=== PATIENT | male | born 1950 | race African-American/Black ===

== ENCOUNTER 2016-09-18 11:45 | Inpatient (IN) | payer BC ==
[~2016-09-18] VITALS: Ht 185.4 cm; Wt 81.0 kg
[2016-09-18 11:55] VITALS: Ht 185.4 cm; Wt 81.0 kg
[2016-09-18 12:00] VITALS: TEMP 97.6
[2016-09-18] MEDS ORDERED: LEVOFLOXACIN 750MG/D5W (PMX) 150 ML IVPB STA (12:27)
[2016-09-18] MEDS ORDERED: ALBUTEROL 0.5% (NEB) 2.5 MG/0.5 ML AMP INH STA (12:27)
[2016-09-18] MEDS ORDERED: predniSONE 20 MG TAB PO STA (12:27)
[2016-09-18] MEDS ORDERED: IPRATROPIUM (NEB) 0.5 MG/2.5 ML AMP INH STA (12:27)
[2016-09-18 12:49] LABS: ADD SCAN DIFF NO
[2016-09-18 12:53] LABS: BASOPHIL # 0.1 10^3/ul (0.0-0.1); BASOPHILS % 0.7 % (0.0-2.0); EOSINOPHILS # 0.2 10^3/ul (0.0-0.5); EOSINOPHILS % 2.3 % (0.0-7.0); HEMATOCRIT 44.2 % (42.0-52.0); HEMOGLOBIN 14.4 g/dl (14.0-18.0); LYMPHOCYTES # 1.4 10^3/ul (0.8-2.9); LYMPHOCYTES % 16.4 % (15.0-51.0); MEAN CORPUSCULAR HEMOGLOBIN 30.1 pg (29.0-33.0); MEAN CORPUSCULAR HGB CONC 32.6 g/dl (32.0-37.0); MEAN CORPUSCULAR VOLUME 92.5 fl (82.0-101.0); MEAN PLATELET VOLUME 9.5 fl (7.4-10.4); MONOCYTE # 0.5 10^3/ul (0.3-0.9); MONOCYTES % 6.3 % (0.0-11.0); NEUTROPHIL # 6.3 10^3/ul (1.6-7.5); NEUTROPHILS % 73.9 % (39.0-77.0); PLATELET COUNT 362 10^3/UL (140-415); RED BLOOD COUNT 4.78 10^6/ul (4.70-6.10); RED CELL DISTRIBUTION WIDTH 13.4 % (11.5-14.5); WHITE BLOOD COUNT 8.5 10^3/ul (4.8-10.8)
--- NOTE | 2016-09-18 12:53 | RADRPT ---
PROCEDURE: Chest x-ray CLINICAL INDICATION: Pain. TECHNIQUE: One-view frontal. COMPARISON: None available FINDINGS: The cardiac silhouette is normal. No infiltrates are noted. No hilar abnormalities are identified. No pneumothorax or pleural effusions are visualized. Mild chronic pulmonary interstitial changes are noted. Mild aortic calcification/atherosclerosis is noted. Hyperinflation is identified. IMPRESSION: 1. Mild chronic interstitial changes and mild hyperinflation. 2. No acute infiltrates are noted. RPTAT: HGSG .Hussein Cortes MD, MD Date Time Electronically viewed and signed by .Hussein Cortes MD, on 09/18/2016 12:52 .G/
[2016-09-18 13:05] LABS: INR 0.94; PROTIME 12.6 Sec (12.2-14.2)
[2016-09-18 13:06] LABS: PARTIAL THROMBOPLASTIN TIME 31.2 Sec (25.0-35.0)
[2016-09-18 13:18] LABS: ALBUMIN 4.1 g/dl (3.3-4.9); CHLORIDE 102 mmol/L (97-110); POTASSIUM 4.3 mmol/L (3.5-5.1); SODIUM 141 mmol/L (135-144)
[2016-09-18 13:21] LABS: ALANINE AMINOTRANSFERASE 46 IU/L (13-69); ALBUMIN/GLOBULIN RATIO 1.36; ALKALINE PHOSPHATASE 109 IU/L (42-121); ANION GAP 16 (8-16); ASPARTATE AMINO TRANSFERASE 40 IU/L (15-46); BILIRUBIN,INDIRECT 0.3 mg/dl (0-1.1); BILIRUBIN,TOTAL 0.3 mg/dl (0.2-1.3); BLOOD UREA NITROGEN 18 mg/dl (7-20); CARBON DIOXIDE 27 mmol/L (21-31); CREATININE 0.96 mg/dl (0.61-1.24); GLUCOSE 113 mg/dl (70-220); TOTAL PROTEIN 7.1 g/dl (6.1-8.1)
[2016-09-18 13:22] LABS: CALCIUM 9.7 mg/dl (8.4-10.2)
[2016-09-18 13:25] LABS: TROPONIN-I < 0.012 ng/ml (0.00-0.12)
--- NOTE | 2016-09-18 13:41 | ERA ---
ER Documentation Chief Complaint Date/Time DATE: 09/18/16 TIME: 1225 Chief Complaint Shortness of breath HPI 65-year-old male presents to the emergency department complaining of shortness of breath. Patient states that over the last 3 weeks, he has been having shortness of breath. He has coughing up sputum with no purulence or hemoptysis. Patient reports no fevers or chills. However, despite occasionally using an inhaler, he continues to have shortness of breath and came to the emergency department for evaluation. Patient reports no weight loss or night sweats. He reports no significant chest pain. ROS All systems reviewed and are negative except as per history of present illness. FmHx Noncontributory for chief complaint Physical Exam Physical Exam GENERAL: The patient is well developed and appropriate for usual state of health in no apparent distress HEENT: Pupils equal, round, and reactive to light. EOMI. There is no scleral icterus. NECK: C-spine is soft and supple, there is no meningismus. There is no cervical lymphadenopathy. LUNGS: Wheezing bilaterally with decreased tidal volume and increased work of breathing. HEART: Regular rate and rhythm, no murmurs, clicks, rubs or gallops. ABDOMEN: Soft, non-tender, non-distended. There are bowel sounds in all four quadrants. No rebound or guarding. EXTREMITIES: There is no peripheral cyanosis or edema. No focal swelling or erythema. NEURO: The patient moves all four extremities with 5/5 strength. Cranial nerves II - XII are intact. Normal gait. Alert and oriented SKIN: There is no apparent rash or petechiae. HEME/LYMPHATIC: There is no evidence of excessive bruising or lymphedema. PSYCHIATRIC: The patient does not appear anxious or depressed. Result Diagram: 09/18/16 1230 09/18/16 1230 Results 24 hrs Laboratory Tests Test 09/18/16 12:30 Activated Partial Thromboplast Time 31.2Sec Alanine Aminotransferase (ALT/SGPT) 46IU/L Albumin 4.1g/dl Albumin/Globulin Ratio 1.36 Alkaline Phosphatase 109IU/L Anion Gap 16 Aspartate Amino Transf (AST/SGOT) 40IU/L Basophils # 0.110^3/ul Basophils % 0.7% Blood Urea Nitrogen 18mg/dl Calcium Level 9.7mg/dl Carbon Dioxide Level 27mmol/L Chloride Level 102mmol/L Creatinine 0.96mg/dl Direct Bilirubin 0.00mg/dl Eosinophils # 0.210^3/ul Eosinophils % 2.3% Globulin 3.00g/dl Glucose Level 113mg/dl Hematocrit 44.2% Hemoglobin 14.4g/dl INR International Normalized Ratio 0.94 Indirect Bilirubin 0.3mg/dl Lymphocytes # 1.410^3/ul Lymphocytes % 16.4% Mean Corpuscular Hemoglobin 30.1pg Mean Corpuscular Hemoglobin Concent 32.6g/dl Mean Corpuscular Volume 92.5fl Mean Platelet Volume 9.5fl Monocytes # 0.510^3/ul Monocytes % 6.3% Neutrophils # 6.310^3/ul Neutrophils % 73.9% Nucleated Red Blood Cells # 0.010^3/ul Nucleated Red Blood Cells % 0.0/100WBC Platelet Count 51120^3/UL Potassium Level 4.3mmol/L Prothrombin Time 12.6Sec Prothrombin Time Ratio 1.0 Red Blood Count 4.7810^6/ul Red Cell Distribution Width 13.4% Sodium Level 141mmol/L Total Bilirubin 0.3mg/dl Total Protein 7.1g/dl Troponin I < 0.012ng/ml White Blood Count 8.510^3/ul Current Medications Medications (Trade) Dose Ordered Sig/Ash Route PRN Reason Start Time Stop Time Status Last Admin Dose Admin Albuterol (Proventil 0.5% (Neb)) 5 mg ONCE STAT INH 09/18/16 12:27 09/18/16 12:29 DC 09/18/16 12:50 Ipratropium [place] (Atrovent 0.02% (Neb)) 0.5 mg ONCE STAT INH 09/18/16 12:27 09/18/16 12:29 DC 09/18/16 12:50 Prednisone 60 mg 60 mg ONCE STAT PO 09/18/16 12:27 09/18/16 12:29 DC 09/18/16 13:34 Levofloxacin/ Dextrose (Levaquin 750 Mg/ D5W 150 ml (Pmx)) 150 ml @ 100 mls/hr ONCE STAT IVPB 09/18/16 12:27 09/18/16 13:56 09/18/16 13:33 Procedures/MDM Patient was taken to a room, seen and evaluated. Comfort measures were initiated. Diagnostic tests were ordered and reviewed. 3 LEAD RHYTHM STRIP: Normal sinus rhythm without ectopy EK lead EKG reviewed by myself: Normal Sinus Rhythm Normal [place] and intervals No ST elevation, depression, or T wave inversion Impression: Normal EKG RADIOLOGY: reviewed with the radiologist CONSULTATION: hospitalist was notified for admission REEVALUATION: Patient's wheezing improved somewhat with bronchodilators, but he continued to have wheezing noted. Work of breathing was somewhat improved but still not normal. MEDICAL DECISION MAKING: Patient presents for shortness of breath. Differential diagnosis entertained included asthma, pneumonia, other cardiac and pulmonary concerns. After reviewing the patient's diagnostic tests and clinical presentation, patient appears to have COPD exacerbation with no obvious pneumonia. Patient has not completely resolved after bronchodilators and steroids and will benefit from admission to the hospital for further bronchodilator therapy, antibiotics and further treatment. Departure Diagnosis: Primary Impression: COPD exacerbation Condition: GEOFFREY Tomlinson Sep 18, 2016 13:41
--- NOTE | 2016-09-18 14:04 | CONS ---
Date/Time of Note Date/Time of Note DATE: 09/18/16 TIME: 13:59 Assessment/Plan Assessment/Plan Additional Assessment/Plan Chest x-ray was reviewed from today which is showing emphysematous changes without any acute infiltrates. Assessment recommendations; 1. Patient admitted with COPD exacerbation with acute bronchitis. Add Solu-Medrol 60 mg every 6 hours, DuoNeb every 6 hours scheduled and every 4 hours as needed. Levaquin 500 mg IV daily. PPI for GI prophylaxis. Lovenox for DVT prophylaxis. Start supplemental O2 to maintain O2 saturation around 90- 94%. Consultation Date/Type/Reason Admit Date/Time Date of Consultation: Sep 18, 2016 Type of Consultation: Pulmonary Reason for Consultation Pulmonary consultation obtained for COPD exacerbation. History of present illness; Mr. Alcantar is a 52-year-old F [place] male came into the emergency room with a 3-4 day history of increasing shortness of breath , chest congestion severe wheezing patient has been on prednisone without any significant improvement as well as oral antibiotic on outpatient basis. He did have episode of low-grade fever but denies any chest pain, complains of yellow sputum production with streaks of blood in it off and on. According to the patient he was financial symptoms started 3 days ago and denies any chronic respiratory symptoms whatsoever. She also denies any nausea, vomiting. Any diarrhea. Any abdominal pain. Past medical history; is none. Allergies; are none. Social history; patient is a current smoker. No alcohol or drug abuse. Family history; he is single, has 1 son. No show any illnesses in the family. 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 Review of systems; denies any headache, visual changes. Seizures. Does complain of nasal congestion and postnasal drip. Denies any chest pain, angina. Denies any fever chills body aches myalgias sore throat. Any dysphagia. Any edema, orthopnea,weight loss. Denies any night sweats. Exam/Review of Systems Exam HEENT examination; supple neck, no JVD. No lymphadenopathy. Midline trachea. Pharynx is clear. Patient has bilateral cataracts. He is mostly edentulous has few remaining teeth. Chest examination; diffuse bilateral wheezing. With diminished breath sounds throughout. S1-S2 audible, no murmurs. Regular rhythm. Abdomen examination; soft, no organomegaly. Bowel sounds audible. Nontender abdomen. Extremity examination; no peripheral edema. Pulses 2+ bilaterally. No clubbing. 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 Results Result Diagram: 09/18/16 1230 09/18/16 1230 Results 24 hrs Laboratory Tests Test 09/18/16 12:30 Activated Partial Thromboplast Time 31.2 Alanine Aminotransferase (ALT/SGPT) 46 Albumin 4.1 Albumin/Globulin Ratio 1.36 Alkaline Phosphatase 109 Anion Gap 16 Aspartate Amino Transf (AST/SGOT) 40 Basophils # 0.1 Basophils % 0.7 Blood Urea Nitrogen 18 Calcium Level 9.7 Carbon Dioxide Level 27 Chloride Level 102 Creatinine 0.96 Direct Bilirubin 0.00 Eosinophils # 0.2 Eosinophils % 2.3 Globulin 3.00 Glucose Level 113 Hematocrit 44.2 Hemoglobin 14.4 INR International Normalized Ratio 0.94 Indirect Bilirubin 0.3 Lymphocytes # 1.4 Lymphocytes % 16.4 Mean Corpuscular Hemoglobin 30.1 Mean Corpuscular Hemoglobin Concent 32.6 Mean Corpuscular Volume 92.5 Mean Platelet Volume 9.5 Monocytes # 0.5 Monocytes % 6.3 Neutrophils # 6.3 Neutrophils % 73.9 Nucleated Red Blood Cells # 0.0 Nucleated Red Blood Cells % 0.0 Platelet Count 362 Potassium Level 4.3 Prothrombin Time 12.6 Prothrombin Time Ratio 1.0 Red Blood Count 4.78 Red Cell Distribution Width 13.4 Sodium Level 141 Total Bilirubin 0.3 Total Protein 7.1 Troponin I < 0.012 White Blood Count 8.5 KAREN GAITAN Sep 18, 2016 14:03
[2016-09-18] MEDS ORDERED: NACL 0.9% 3 ML SYG IV SCH (15:00)
[2016-09-18] MEDS ORDERED: ACETAMINOPHEN 325 MG TAB PO PRN (15:00)
[2016-09-18] MEDS ORDERED: ONDANSETRON 4 MG INJ IV PRN (15:00)
[2016-09-18] MEDS ORDERED: ALBUTEROL/IPRATROPIUM (NEB) 3 ML AMP HHN PRN (15:00)
[2016-09-18] MEDS ORDERED: DOCUSATE SODIUM 100 MG CAP PO PRN (15:00)
[2016-09-18 15:19] VITALS: BP 123/88; RESP 24
--- NOTE | 2016-09-18 15:54 | HP ---
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 CHIEF COMPLAINT: Shortness of breath. HISTORY OF PRESENT ILLNESS: This is a pleasant 65-year-old gentleman with past medical history of n icotine dependency who presents to [facility] secondary to having flu-like symptom s x3 weeks accompanied with cough, fever off and on, increased wheezing, nasal congestion, shortness of breath upon ambulation and paroxysmal nocturnal dyspnea for the past 3 weeks secondary to excess félix cough. Patient has been treating himself with [id number] medication such as Thera-Flu and Tylenol without any resolution. Today, the patient was at work had severe shortness of breath and wheezing; therefore, he presented to [facility] Emergency Room where he was found to be tac hycardic with ventricular rate 101, respiration rate of 34, blood pressure 189/107, oxygen saturatio n 96% on 3 liters via nasal cannula. The patient was started on DuoNeb, prednisone and Levaquin. T he patient continues to have wheezing at this time. PAST MEDICAL AND SURGICAL HISTORY: 1. Smoking 7 to 8 cigarettes per day. 2. Bilateral foot surgery. FAMILY HISTORY: No family history of cardiac disease, COPD, cancer. SOCIAL HISTORY: Positive for smoke. History of nicotine dependency. No alcohol, no illicit drugs. REVIEW OF SYSTEMS: As above per HPI, otherwise 12-point review of systems has been found to be nega tive. PHYSICAL EXAMINATION: VITAL SIGNS: Temperature 97.6, pulse 92, respiration 19, blood pressure 131/88, oxygen saturation 9 7% on 3 liters via nasal cannula. GENERAL APPEARANCE: The patient is sitting on the bed comfortably without any distress. He is awak e, alert, oriented. He is able to answer my questions properly. He is not using any accessory musc le for breathing. EYES, EARS, NOSE, THROAT: Conjunctivae and lids are normal. Pupils are normal. Extraocular normal . Hearing grossly normal. Lips are normal. Oral mucosa is moist. NECK: Supple. Trachea is midline. No lymphadenopathy. RESPIRATORY: Effort is normal. Bilateral upper lung wheezing. No crackles, no rales. CARDIOVASCULAR: Normal S1, S2. Regular rhythm and rate. No murmur, no bruits, no edema. Peripher al pulses, radial pulses palpable. Cap refill is normal. CHEST: Normal expansion of thorax during inspiration. He does not use any accessory muscles for br eathing. GASTROINTESTINAL: Abdomen is soft, nontender, not distended. Bowel sounds present. No guarding, n o rebound. GENITOURINARY: Deferred. MUSCULOSKELETAL: Upper and lower extremities within normal limits. Full range of motion, strength 5/5 in both upper and lower extremities. NEUROLOGIC: Cranial nerves II through XII are grossly intact. PSYCHIATRIC: Normal judgment and insight. Alert and oriented x3. Mood and affect is normal. LABORATORY WORK AND IMAGING: WBC 8.5, hemoglobin 14.4, hematocrit 44.2, platelets 362. Sodium 141, potassium 4.3, chloride 102, bicarbonate 27, BUN 18, creatinine 0.96, glucose 113. Lactic acid 1.5 . LFTs all within normal limits. Chest x-ray showed mild chronic interstitial changes with mild hyperinflation, no acute infiltrate i s noted. ASSESSMENT AND PLAN: 1. Asthma exacerbation is likely secondary to viral syndrome. Patient has been started on Levaquin and breathing treatment, Solu-Medrol. Pulmonology has been consulted. We will follow up patient's breathing and oxygen saturation. 2. History of nicotine dependency. Education was provided and smoking cessation has been advised. Place the patient on nicotine patch. 3. For deep venous thrombosis prophylaxis, on Lovenox. 4. For gastrointestinal prophylaxis, not indicated. We will continue to monitor patient closely. Further recommendations, management and treatment as per clinical course. Total amount of time was spent for evaluation of patient and workup was 40 minutes. Dictated By: JG MUNOZ/AUREA Conf#: [id number] DID#: [id number]
[2016-09-18 19:35] VITALS: BP 120/73; RESP 22
[2016-09-18] MEDS: ALBUTEROL/IPRATROPIUM (NEB) 3 ML AMP HHN SCH (19:48)
[2016-09-18] MEDS: METHYLPREDNISOLONE 125 MG INJ IV SCH (21:20)
[2016-09-19] MEDS: ALBUTEROL/IPRATROPIUM (NEB) 3 ML AMP HHN SCH ×5 (02:48→20:50)
[2016-09-19] MEDS: METHYLPREDNISOLONE 125 MG INJ IV SCH ×3 (05:49→21:15)
[2016-09-19] MEDS: GUAIFENESIN/CODEINE 5ML CUP PO PRN ×2 (05:53→21:15)
[2016-09-19] MEDS: HYDROCODONE/APAP (5/325) TAB PO PRN ×2 (05:53→19:04)
[2016-09-19 06:19] LABS: ALBUMIN 3.9 g/dl (3.3-4.9); POTASSIUM 4.4 mmol/L (3.5-5.1)
[2016-09-19 06:21] LABS: BILIRUBIN,INDIRECT 0.1 mg/dl (0-1.1); BILIRUBIN,TOTAL 0.1 mg/dl (0.2-1.3); CREATININE 0.8 mg/dl (0.61-1.24)
[2016-09-19 06:22] LABS: ALBUMIN/GLOBULIN RATIO 1.21; CALCIUM 9.6 mg/dl (8.4-10.2); TOTAL PROTEIN 7.1 g/dl (6.1-8.1)
[2016-09-19 07:14] VITALS: BP 128/83; RESP 24
[2016-09-19] MEDS: NICOTINE (7 MG/24 HR) PATCH TRANSDERM SCH (10:02)
[2016-09-19] MEDS: ENOXAPARIN 40 MG/0.4 ML SYG SC SCH (10:13)
[2016-09-19] MEDS: LEVOFLOXACIN 500MG/D5W (PMX) 100 ML IVPB SCH (13:59)
[2016-09-19] MEDS: DOCUSATE SODIUM 100 MG CAP PO SCH ×2 (14:12→20:37)
--- NOTE | 2016-09-19 16:23 | PN ---
DATE: 09/19/2016 SUBJECTIVE: The patient, Ortiz, remains stable this morning, still has some shortness of breath on exertion and auditory wheezing. PHYSICAL EXAMINATION:. VITAL SIGNS: Temperature 98, pulse 95, blood pressure 128/83, O2 saturation 96% on 2 L nasal cannul a. NECK: Supple. No JVD or lymphadenopathy. CARDIAC: S1, S2, no added sounds or murmurs. CHEST: Diminished air entry bilaterally. ABDOMEN: Soft, nontender. No guarding or rebound. EXTREMITIES: No cyanosis, clubbing, edema. NEUROLOGIC: Grossly intact. No focal deficits. LABORATORY DATA: Pending at time of this dictation. IMPRESSION AND PLAN: 1. Hypoxemic respiratory failure. 2. Chronic obstructive pulmonary disease with exacerbation. 3. History of ongoing tobacco use. Patient will require: 1. Continue steroids. 2. Bronchodilators. 3. Intravenous antibiotics. 4. DVT and GI prophylaxis. 5. Advice on smoking cessation. Dictated By: MELONIE COATES/AUREA Conf#: [id number] DID#: [id number]
--- NOTE | 2016-09-19 17:10 | PN ---
Date/Time of Note Date/Time of Note DATE: 09/19/16 TIME: 17:08 Assessment/Plan VTE Prophylaxis VTE Prophylaxis Intervention: LMWH Lines/Catheters [facility] Saline Lock Urinary Cath still in place: No Assessment/Plan Assessment/Plan 1. COPD exacerbation is likely secondary to viral syndrome. Patient has been started on Levaquin and breathing treatment, Solu-Medrol. increase bronchodilator therapy to q4h 2. Nicotine dependency. Education was provided and smoking cessation has been advised. Patient on nicotine patch. 3. For deep venous thrombosis prophylaxis, on Lovenox. 4. For gastrointestinal prophylaxis, not indicated. We will continue to monitor patient closely. Further recommendations, management and treatment as per clinical course. Subjective 24 Hr Interval Summary Free Text/Dictation c/o coughing , still quite SOB Exam/Review of Systems Vital Signs Vitals Vital Signs Date Time Temp Pulse Resp B/P Pulse Ox O2 Delivery O2 Flow Rate FiO2 09/19/16 16:02 81 22 94 Nasal Cannula 2.0 09/19/16 07:14 98.0 128/83 Intake and Output 09/18/16 09/18/16 09/19/16 15:00 23:00 07:00 Intake Total 240 ml 450 ml Output Total 350 ml Balance -110 ml 450 ml Exam Constitutional: alert, oriented Psych: anxiety Eyes: PERRL, No icteric ENMT: mucosa pink and moist Respiratory: diminished breath sounds, wheezing Cardiovascular: nl pulses, No murmurs/extra sounds Gastrointestinal: bowel sounds, non-tender, soft Neurological: nl mental status, nl speech, nl strength Results Result Diagram: 09/18/16 1230 09/19/16 0505 Results 24 hrs Laboratory Tests Test 09/19/16 05:05 Alanine Aminotransferase (ALT/SGPT) 40 Albumin 3.9 Albumin/Globulin Ratio 1.21 Alkaline Phosphatase 99 Anion Gap 15 Aspartate Amino Transf (AST/SGOT) 32 Blood Urea Nitrogen 12 Calcium Level 9.6 Carbon Dioxide Level 26 Chloride Level 105 Creatinine 0.80 Direct Bilirubin 0.00 Globulin 3.20 Glucose Level 156 Indirect Bilirubin 0.1 Magnesium Level 2.0 Potassium Level 4.4 Sodium Level 142 Total Bilirubin 0.1 L Total Protein 7.1 Medications Medications Current Medications Methylprednisolone Sodium Succinate 60 mg 60 mg Q8 IV Last administered on t 14:02; Admin Dose 60 MG; Start 09/18/16 at 22:00 Levofloxacin/ Dextrose (Levaquin 500mg/ D5W 100 ml (Pmx)) 100 ml @ 100 mls/hr Q24H IVPB Last administered on 09/19/16 13:59; Admin Dose 100 MLS/HR; Start 09/19/16 at 13:00 Guaifenesin/ Codeine Phosphate (Robitussin Ac Liquid Cup) 5 ml Q4H PRN PO COUGH Last administered on 09/19/16 05:53; Admin Dose 5 ML; Start 09/18/16 at 15: 00 Ondansetron HCl (Zofran Inj) 4 mg Q6H PRN IV NAUSEA AND/OR VOMITING; Start 09/18 at 15:00 Acetaminophen (Tylenol Tab) 650 mg Q6H PRN PO PAIN LEVEL 1-3 OR FEVER; Start at 15:00 Acetaminophen/ Hydrocodone Bitart ([place] (5/325)) 1 tab Q6H PRN PO MODERATE PAIN LEVEL 4-6 Last administered on 09/19/16 05:53; Admin Dose 1 TAB; Start 09/18 at 15:00 Enoxaparin Sodium (Lovenox) 40 mg DAILY SC Last administered on 09/19/16 10:13 ; Admin Dose 40 MG; Start 09/19/16 at 09:00 Nicotine (Nicoderm 7 Mg/ 24 Hr) 1 patch DAILY TRANSDERM Last administered on 10:02; Admin Dose 1 PATCH; Start 09/19/16 at 09:00 Docusate Sodium (Colace) 100 mg Q12 PO Last administered on 09/19/16 14:12; Admin Dose 100 MG; Start 09/19/16 at 15:00 DORINDA VIRGEN Sep 19, 2016 17:09
[2016-09-19 19:00] VITALS: BP 147/79; RESP 20
[2016-09-19] MEDS: FAMOTIDINE 20 MG TAB PO SCH (20:37)
[2016-09-20] MEDS: ALBUTEROL/IPRATROPIUM (NEB) 3 ML AMP HHN SCH ×6 (00:22→20:27)
[2016-09-20] MEDS: GUAIFENESIN/CODEINE 5ML CUP PO PRN ×3 (01:16→13:07)
[2016-09-20] MEDS: METHYLPREDNISOLONE 125 MG INJ IV SCH ×3 (05:34→21:39)
[2016-09-20] MEDS: HYDROCODONE/APAP (5/325) TAB PO PRN ×2 (05:38→13:07)
[2016-09-20] MEDS: FAMOTIDINE 20 MG TAB PO SCH ×2 (07:53→21:39)
[2016-09-20] MEDS: DOCUSATE SODIUM 100 MG CAP PO SCH ×2 (07:53→21:39)
[2016-09-20] MEDS: NICOTINE (7 MG/24 HR) PATCH TRANSDERM SCH (07:54)
[2016-09-20 08:25] VITALS: BP 132/80; RESP 20
[2016-09-20] MEDS: ENOXAPARIN 40 MG/0.4 ML SYG SC SCH (08:42)
--- NOTE | 2016-09-20 10:57 | PN ---
Date/Time of Note Date/Time of Note DATE: 09/20/16 TIME: 10:56 Assessment/Plan VTE Prophylaxis VTE Prophylaxis Intervention: LMWH Lines/Catheters [facility] Saline Lock Urinary Cath still in place: No Assessment/Plan Assessment/Plan 1. COPD exacerbation is likely secondary to viral syndrome (acute bronchitis): improving slowly 2. Nicotine dependency. Education was provided and smoking cessation has been advised. Patient on nicotine patch. 3. For deep venous thrombosis prophylaxis, on Lovenox. 4. For gastrointestinal prophylaxis, not indicated. PLAN: continue bronchodilator and steroid therapy We will continue to monitor patient closely. Further recommendations, management and treatment as per clinical course. Subjective 24 Hr Interval Summary Free Text/Dictation Patient seen and examined. Constitutional: improved, no complaints Respiratory: cough, wheezing Gastrointestinal: constipation Exam/Review of Systems Vital Signs Vitals Vital Signs Date Time Temp Pulse Resp B/P Pulse Ox O2 Delivery O2 Flow Rate FiO2 09/20/16 08:30 4.0 09/20/16 08:30 20 95 Nasal Cannula 09/20/16 08:25 98.1 94 132/80 Intake and Output 09/19/16 09/19/16 09/20/16 15:00 23:00 07:00 Intake Total 100 ml 1080 ml 960 ml Balance 100 ml 1080 ml 960 ml Exam Constitutional: alert, oriented Psych: anxiety Eyes: PERRL, No icteric ENMT: mucosa pink and moist Respiratory: diminished breath sounds, wheezing Cardiovascular: nl pulses, No murmurs/extra sounds Gastrointestinal: bowel sounds, non-tender, soft Neurological: nl mental status, nl speech, nl strength Results Result Diagram: 09/18/16 1230 09/19/16 0505 Medications Medications Current Medications Methylprednisolone Sodium Succinate 60 mg 60 mg Q8 IV Last administered on 05:34; Admin Dose 60 MG; Start 09/18/16 at 22:00 Levofloxacin/ Dextrose (Levaquin 500mg/ D5W 100 ml (Pmx)) 100 ml @ 100 mls/hr Q24H IVPB Last administered on 09/19/16 13:59; Admin Dose 100 MLS/HR; Start 09/19/16 at 13:00 Guaifenesin/ Codeine Phosphate (Robitussin Ac Liquid Cup) 5 ml Q4H PRN PO COUGH Last administered on 09/20/16 05:38; Admin Dose 5 ML; Start 09/18/16 at 15: 00 Ondansetron HCl (Zofran Inj) 4 mg Q6H PRN IV NAUSEA AND/OR VOMITING; Start 09/18 at 15:00 Acetaminophen (Tylenol Tab) 650 mg Q6H PRN PO PAIN LEVEL 1-3 OR FEVER; Start at 15:00 Acetaminophen/ Hydrocodone Bitart ([place] (5/325)) 1 tab Q6H PRN PO MODERATE PAIN LEVEL 4-6 Last administered on 09/20/16 05:38; Admin Dose 1 TAB; Start 09/18 at 15:00 Enoxaparin Sodium (Lovenox) 40 mg DAILY SC Last administered on 09/20/16 08:42 ; Admin Dose 40 MG; Start 09/19/16 at 09:00 Nicotine (Nicoderm 7 Mg/ 24 Hr) 1 patch DAILY TRANSDERM Last administered on 07:54; Admin Dose 1 PATCH; Start 09/19/16 at 09:00 Docusate Sodium (Colace) 100 mg Q12 PO Last administered on 09/20/16 07:53; Admin Dose 100 MG; Start 09/19/16 at 15:00 Famotidine (Pepcid) 20 mg BID PO Last administered on 09/20/16 07:53; Admin Dose 20 MG; Start 09/19/16 at 21:00 DORINDA VIRGEN Sep 20, 2016 10:57
--- NOTE | 2016-09-20 12:07 | CONS ---
Date/Time of Note Date/Time of Note DATE: 09/20/16 TIME: 12:05 Assessment/Plan Assessment/Plan Additional Assessment/Plan Assessment and recommendations; 1. Patient admitted with COPD exacerbation and acute bronchitis with slow clinical improvement. Continue current treatment. Consultation Date/Type/Reason Admit Date/Time Sep 19, 2016 at 12:18 Initial Consult Date 09/18/16 Type of Consultation: Pulmonary 24 HR Interval Summary Free Text/Dictation Patient's condition is gradually improving. Still complains of chest congestion , sputum production as well as wheezing. Because of breath is improving. But the patient still complains of dyspnea on exertion. Denies any fever, chest pain, chills. Next General exam; elderly male, currently in no distress. Exam/Review of Systems Vital Signs Vitals Vital Signs Date Time Temp Pulse Resp B/P Pulse Ox O2 Delivery O2 Flow Rate FiO2 09/20/16 08:30 4.0 09/20/16 08:30 20 95 Nasal Cannula 09/20/16 08:25 98.1 94 132/80 Intake and Output 09/19/16 09/19/16 09/20/16 15:00 23:00 07:00 Intake Total 100 ml 1080 ml 960 ml Balance 100 ml 1080 ml 960 ml Exam HEENT examination; supple neck, no JVD. No lymphadenopathy. Midline trachea. No thyromegaly. Patient is mostly edentulous. Pharynx is clear. Pupils are midsize and reactive to light. Next Chest examination; diminished breath sounds bilateral wheezing. S1-S2 audible, no murmurs. Regular rhythm. Abdomen examination; soft, nondistended. No organomegaly. Nontender. Bowel sounds audible. Extremity examination; no peripheral edema. No clubbing. Pulses 1+ bilaterally. 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 Results Result Diagram: 09/18/16 1230 09/19/16 0505 Medications Medications Current Medications Methylprednisolone Sodium Succinate 60 mg 60 mg Q8 IV Last administered on 05:34; Admin Dose 60 MG; Start 09/18/16 at 22:00 Levofloxacin/ Dextrose (Levaquin 500mg/ D5W 100 ml (Pmx)) 100 ml @ 100 mls/hr Q24H IVPB Last administered on 09/19/16 13:59; Admin Dose 100 MLS/HR; Start 09/19/16 at 13:00 Guaifenesin/ Codeine Phosphate (Robitussin Ac Liquid Cup) 5 ml Q4H PRN PO COUGH Last administered on 09/20/16 05:38; Admin Dose 5 ML; Start 09/18/16 at 15: 00 Ondansetron HCl (Zofran Inj) 4 mg Q6H PRN IV NAUSEA AND/OR VOMITING; Start 09/18 at 15:00 Acetaminophen (Tylenol Tab) 650 mg Q6H PRN PO PAIN LEVEL 1-3 OR FEVER; Start at 15:00 Acetaminophen/ Hydrocodone Bitart ([place] (5/325)) 1 tab Q6H PRN PO MODERATE PAIN LEVEL 4-6 Last administered on 09/20/16 05:38; Admin Dose 1 TAB; Start 09/18 at 15:00 Enoxaparin Sodium (Lovenox) 40 mg DAILY SC Last administered on 09/20/16 08:42 ; Admin Dose 40 MG; Start 09/19/16 at 09:00 Nicotine (Nicoderm 7 Mg/ 24 Hr) 1 patch DAILY TRANSDERM Last administered on 07:54; Admin Dose 1 PATCH; Start 09/19/16 at 09:00 Docusate Sodium (Colace) 100 mg Q12 PO Last administered on 09/20/16 07:53; Admin Dose 100 MG; Start 09/19/16 at 15:00 Famotidine (Pepcid) 20 mg BID PO Last administered on 09/20/16 07:53; Admin Dose 20 MG; Start 09/19/16 at 21:00 KAREN GAITAN Sep 20, 2016 12:07
[2016-09-20] MEDS: LEVOFLOXACIN 500MG/D5W (PMX) 100 ML IVPB SCH (13:03)
[2016-09-20 19:00] VITALS: BP 150/84; RESP 24
[2016-09-20] MEDS ORDERED: MAGNESIUM CITRATE 300 ML BTL PO ONE (20:00)
[2016-09-21] MEDS: ALBUTEROL/IPRATROPIUM (NEB) 3 ML AMP HHN SCH ×5 (00:40→20:58)
[2016-09-21] MEDS: GUAIFENESIN/CODEINE 5ML CUP PO PRN (03:50)
[2016-09-21] MEDS: METHYLPREDNISOLONE 125 MG INJ IV SCH ×3 (06:07→21:27)
[2016-09-21 07:30] VITALS: BP 141/87; RESP 22
[2016-09-21] MEDS: FAMOTIDINE 20 MG TAB PO SCH ×2 (09:04→21:27)
[2016-09-21] MEDS: DOCUSATE SODIUM 100 MG CAP PO SCH ×2 (09:04→21:27)
[2016-09-21] MEDS: NICOTINE (7 MG/24 HR) PATCH TRANSDERM SCH (09:05)
[2016-09-21] MEDS: ENOXAPARIN 40 MG/0.4 ML SYG SC SCH (09:26)
--- NOTE | 2016-09-21 10:44 | PN ---
Date/Time of Note Date/Time of Note DATE: 09/21/16 TIME: 10:43 Assessment/Plan VTE Prophylaxis VTE Prophylaxis Intervention: LMWH Lines/Catheters IV Catheter Type (from [facility]): Saline Lock Urinary Cath still in place: No Assessment/Plan Assessment/Plan 1. COPD exacerbation is likely secondary to viral syndrome (acute bronchitis): improving slowly 2. Nicotine dependency. Education was provided and smoking cessation has been advised. Patient on nicotine patch. 3. For deep venous thrombosis prophylaxis, on Lovenox. 4. For gastrointestinal prophylaxis, not indicated. PLAN: continue bronchodilator and steroid therapy We will continue to monitor patient closely. Further recommendations, management and treatment as per clinical course. Subjective 24 Hr Interval Summary Constitutional: improved Exam/Review of Systems Vital Signs Vitals Vital Signs Date Time Temp Pulse Resp B/P Pulse Ox O2 Delivery O2 Flow Rate FiO2 09/21/16 08:55 90 22 94 Nasal Cannula 3.0 09/21/16 07:30 97.7 141/87 Intake and Output 09/20/16 09/20/16 09/21/16 14:59 22:59 06:59 Intake Total 760 ml 720 ml Balance 760 ml 720 ml Exam Constitutional: alert, oriented Psych: anxiety Eyes: PERRL, No icteric ENMT: mucosa pink and moist Respiratory: diminished breath sounds, wheezing Cardiovascular: nl pulses, No murmurs/extra sounds Gastrointestinal: bowel sounds, non-tender, soft Neurological: nl mental status, nl speech, nl strength Results Result Diagram: 09/18/16 1230 09/19/16 0505 Medications Medications Current Medications Methylprednisolone Sodium Succinate 60 mg 60 mg Q8 IV Last administered on 06:07; Admin Dose 60 MG; Start 09/18/16 at 22:00 Levofloxacin/ Dextrose (Levaquin 500mg/ D5W 100 ml (Pmx)) 100 ml @ 100 mls/hr Q24H IVPB Last administered on 09/20/16 13:03; Admin Dose 100 MLS/HR; Start 09/19/16 at 13:00 Guaifenesin/ Codeine Phosphate (Robitussin Ac Liquid Cup) 5 ml Q4H PRN PO COUGH Last administered on 09/21/16 03:50; Admin Dose 5 ML; Start 09/18/16 at 15: 00 Ondansetron HCl (Zofran Inj) 4 mg Q6H PRN IV NAUSEA AND/OR VOMITING; Start 09/18 at 15:00 Acetaminophen (Tylenol Tab) 650 mg Q6H PRN PO PAIN LEVEL 1-3 OR FEVER; Start at 15:00 Acetaminophen/ Hydrocodone Bitart ([place] (5/325)) 1 tab Q6H PRN PO MODERATE PAIN LEVEL 4-6 Last administered on 09/20/16 13:07; Admin Dose 1 TAB; Start 09/18 at 15:00 Enoxaparin Sodium (Lovenox) 40 mg DAILY SC Last administered on 09/21/16 09:26 ; Admin Dose 40 MG; Start 09/19/16 at 09:00 Nicotine (Nicoderm 7 Mg/ 24 Hr) 1 patch DAILY TRANSDERM Last administered on 09:05; Admin Dose 1 PATCH; Start 09/19/16 at 09:00 Docusate Sodium (Colace) 100 mg Q12 PO Last administered on 09/21/16 09:04; Admin Dose 100 MG; Start 09/19/16 at 15:00 Famotidine (Pepcid) 20 mg BID PO Last administered on 09/21/16 09:04; Admin Dose 20 MG; Start 09/19/16 at 21:00 DORINDA VIRGEN Sep 21, 2016 10:44
--- NOTE | 2016-09-21 11:19 | PN ---
DATE: 09/21/2016 SUBJECTIVE: The patient Ortiz remains clinically stable, still has some shortness of breath on ex ertion and audible expiratory wheeze. VITAL SIGNS: Temperature 98, pulse is 90, blood pressure 141/80, O2 saturation 96% on 3 L nasal can nula. NECK: Supple. No JVD or lymphadenopathy. CARDIAC: S1, S2, no added sounds or murmurs. HEENT: Diminished air entry bilaterally. CHEST: Diminished air entry bilaterally with expiratory wheezes in left lung. ABDOMEN: Soft, nontender. No guarding or rebound. EXTREMITIES: No cyanosis, clubbing, or edema. NEUROLOGIC: Generalized weakness. IMPRESSION AND PLAN: 1. Chronic obstructive pulmonary disease exacerbation. 2. Hypoxemic respiratory failure. 3. History of tobacco use. 4. Poor dentition. The patient will require: 1. Continue steroids. 2. Bronchodilators. 3. Supplemental O2. 4. Continue Levaquin. 5. DVT and GI prophylaxis. Anticipate discharge in 1 to 2 days. Dictated By: MELONIE COATES/AUREA Conf#: [id number] DID#: [id number]
[2016-09-21] MEDS: LEVOFLOXACIN 500MG/D5W (PMX) 100 ML IVPB SCH (13:00)
[2016-09-21 20:08] VITALS: BP 139/84; RESP 20
[2016-09-22] MEDS: ALBUTEROL/IPRATROPIUM (NEB) 3 ML AMP HHN SCH ×6 (01:22→20:35)
[2016-09-22 05:40] LABS: ADD SCAN DIFF NO
[2016-09-22 05:51] LABS: BASOPHILS % 0.1 % (0.0-2.0); EOSINOPHILS % 0.1 % (0.0-7.0); HEMOGLOBIN 14.3 g/dl (14.0-18.0); LYMPHOCYTES # 1.6 10^3/ul (0.8-2.9); LYMPHOCYTES % 11.1 % (15.0-51.0); MEAN CORPUSCULAR HEMOGLOBIN 30.5 pg (29.0-33.0); MEAN CORPUSCULAR HGB CONC 32.5 g/dl (32.0-37.0); MEAN CORPUSCULAR VOLUME 93.8 fl (82.0-101.0); MEAN PLATELET VOLUME 9.5 fl (7.4-10.4); MONOCYTE # 0.8 10^3/ul (0.3-0.9); MONOCYTES % 5.5 % (0.0-11.0); NEUTROPHIL # 11.6 10^3/ul (1.6-7.5); NEUTROPHILS % 82.1 % (39.0-77.0); PLATELET COUNT 377 10^3/UL (140-415); RED BLOOD COUNT 4.69 10^6/ul (4.70-6.10); WHITE BLOOD COUNT 14.1 10^3/ul (4.8-10.8)
[2016-09-22] MEDS: METHYLPREDNISOLONE 125 MG INJ IV SCH ×3 (06:01→22:27)
[2016-09-22] MEDS: GUAIFENESIN/CODEINE 5ML CUP PO PRN ×2 (06:04→20:58)
[2016-09-22 06:20] LABS: POTASSIUM 4.7 mmol/L (3.5-5.1)
[2016-09-22 06:23] LABS: CREATININE 0.8 mg/dl (0.61-1.24)
[2016-09-22 06:24] LABS: CALCIUM 9.2 mg/dl (8.4-10.2); MAGNESIUM 2.3 mg/dl (1.7-2.5)
[2016-09-22 07:24] VITALS: BP 141/91; RESP 22
[2016-09-22] MEDS: DOCUSATE SODIUM 100 MG CAP PO SCH ×2 (08:26→20:58)
[2016-09-22] MEDS: HYDROCODONE/APAP (5/325) TAB PO PRN (08:26)
[2016-09-22] MEDS: NICOTINE (7 MG/24 HR) PATCH TRANSDERM SCH (08:26)
[2016-09-22] MEDS: FAMOTIDINE 20 MG TAB PO SCH ×2 (08:26→20:58)
[2016-09-22] MEDS: ENOXAPARIN 40 MG/0.4 ML SYG SC SCH (08:31)
--- NOTE | 2016-09-22 12:15 | PN ---
DATE: 09/22/2016 SUBJECTIVE: Patient Ortiz remains stable, still has moderate wheezing on auscultation and some sh ortness of breath on ambulation. PHYSICAL EXAMINATION: VITAL SIGNS: Temperature 98, pulse 77, blood pressure 140/90, O2 saturation 96% on 3 liters. NECK: Supple. No JVD or lymphadenopathy. CARDIAC: S1, S2, no added sounds or murmurs. CHEST: Diminished air entry bilaterally. ABDOMEN: Soft, nontender. No guarding or rebound. EXTREMITIES: No cyanosis, clubbing, or edema. NEUROLOGIC: Generalized weakness. LABORATORY DATA: White count 14.1, hemoglobin 14.3. Chemistry within normal limits. INR 0.94. IMPRESSION AND PLAN: 1. Hypoxemic respiratory failure secondary to chronic obstructive pulmonary disease exacerbation. 2. Possible component of mild diastolic dysfunction. 3. Likely community-acquired pneumonia also. PLAN: 1. Continue steroids. 2. Bronchodilators. 3. Antibiotics. 4. Trial of Lasix. 5. Anticipate discharge soon. Dictated By: MELONIE COATES/AUREA Conf#: [id number] DID#: [id number]
[2016-09-22] MEDS: FUROSEMIDE 40 MG INJ IV SCH (13:16)
[2016-09-22] MEDS: LEVOFLOXACIN 500MG/D5W (PMX) 100 ML IVPB SCH (13:17)
--- NOTE | 2016-09-22 13:50 | PN ---
Date/Time of Note Date/Time of Note DATE: 09/22/16 TIME: 13:48 Assessment/Plan VTE Prophylaxis VTE Prophylaxis Intervention: ambulation, SCD's Lines/Catheters IV Catheter Type (from Nrs): Peripheral IV Urinary Cath still in place: No Assessment/Plan Assessment/Plan 1. COPD exacerbation is likely secondary to viral syndrome (acute bronchitis): improving slowly 2. Nicotine dependency. Education was provided and smoking cessation has been advised. Patient on nicotine patch. 3. For deep venous thrombosis prophylaxis, on Lovenox. 4. For gastrointestinal prophylaxis, not indicated. PLAN: continue abx / bronchodilator and steroid therapy We will continue to monitor patient closely. Further recommendations, management and treatment as per clinical course. Subjective 24 Hr Interval Summary Constitutional: improved Respiratory: cough, shortness of breath, wheezing Exam/Review of Systems Vital Signs Vitals Vital Signs Date Time Temp Pulse Resp B/P Pulse Ox O2 Delivery O2 Flow Rate FiO2 09/22/16 13:28 80 16 96 Nasal Cannula 3.0 09/22/16 07:24 98.1 141/91 09/21/16 12:39 32 Intake and Output 09/21/16 09/21/16 09/22/16 15:00 23:00 07:00 Intake Total 1740 ml 480 ml Balance 1740 ml 480 ml Exam Constitutional: alert, oriented Psych: anxiety Eyes: PERRL, No icteric ENMT: mucosa pink and moist Respiratory: diminished breath sounds, wheezing Cardiovascular: nl pulses, No murmurs/extra sounds Gastrointestinal: bowel sounds, non-tender, soft Neurological: nl mental status, nl speech, nl strength Results Result Diagram: 09/22/1644909/22/16449 Results 24 hrs Laboratory Tests Test 09/22/16 04:50 Anion Gap 15 Basophils # 0.0 Basophils % 0.1 Blood Urea Nitrogen 19 Calcium Level 9.2 Carbon Dioxide Level 30 Chloride Level 99 Creatinine 0.80 Eosinophils # 0.0 Eosinophils % 0.1 Glucose Level 105 Hematocrit 44.0 Hemoglobin 14.3 Lymphocytes # 1.6 Lymphocytes % 11.1 L Magnesium Level 2.3 Mean Corpuscular Hemoglobin 30.5 Mean Corpuscular Hemoglobin Concent 32.5 Mean Corpuscular Volume 93.8 Mean Platelet Volume 9.5 Monocytes # 0.8 Monocytes % 5.5 Neutrophils # 11.6 H Neutrophils % 82.1 H Nucleated Red Blood Cells # 0.0 Nucleated Red Blood Cells % 0.0 Platelet Count 377 Potassium Level 4.7 Red Blood Count 4.69 L Red Cell Distribution Width 14.0 Sodium Level 139 White Blood Count 14.1 #H Medications Medications Current Medications Methylprednisolone Sodium Succinate 60 mg 60 mg Q8 IV Last administered on 09/22 13:17; Admin Dose 60 MG; Start 09/18/16 at 22:00 Levofloxacin/ Dextrose (Levaquin 500mg/ D5W 100 ml (Pmx)) 100 ml @ 100 mls/hr Q24H IVPB Last administered on 09/22/16 13:17; Admin Dose 100 MLS/HR; Start at 13:00 Guaifenesin/ Codeine Phosphate (Robitussin Ac Liquid Cup) 5 ml Q4H PRN PO COUGH Last administered on 09/22/16 06:04; Admin Dose 5 ML; Start 09/18/16 at 15 :00 Ondansetron HCl (Zofran Inj) 4 mg Q6H PRN IV NAUSEA AND/OR VOMITING; Start 09/18 at 15:00 Acetaminophen (Tylenol Tab) 650 mg Q6H PRN PO PAIN LEVEL 1-3 OR FEVER; Start at 15:00 Acetaminophen/ Hydrocodone Bitart ([place] (5/325)) 1 tab Q6H PRN PO MODERATE PAIN LEVEL 4-6 Last administered on 09/22/16 08:26; Admin Dose 1 TAB; Start 09/18/16 at 15:00 Enoxaparin Sodium (Lovenox) 40 mg DAILY SC Last administered on 09/22/16 08:31 ; Admin Dose 40 MG; Start 09/19/16 at 09:00 Nicotine (Nicoderm 7 Mg/ 24 Hr) 1 patch DAILY TRANSDERM Last administered on 08:26; Admin Dose 1 PATCH; Start 09/19/16 at 09:00 Docusate Sodium (Colace) 100 mg Q12 PO Last administered on 09/22/16 08:26; Admin Dose 100 MG; Start 09/19/16 at 15:00 Famotidine (Pepcid) 20 mg BID PO Last administered on 09/22/16 08:26; Admin Dose 20 MG; Start 09/19/16 at 21:00 Furosemide (Lasix) 40 mg DAILY@06 IV Last administered on 09/22/16t 13:16; Admin Dose 40 MG; Start 09/22/16 at 11:30 DORINDA VIRGEN Sep 22, 2016 13:50
[2016-09-22] MEDS: SALMETEROL/FLUTICASONE 250/50 INHA INH SCH ×2 (17:45→22:30)
[2016-09-22] MEDS: TIOTROPIUM 18 MCG CAPSULE INHA DEV INH SCH (17:50)
[2016-09-22 20:14] VITALS: BP 121/81; RESP 18
[2016-09-23] MEDS: ALBUTEROL/IPRATROPIUM (NEB) 3 ML AMP HHN SCH ×6 (01:40→20:48)
[2016-09-23 05:46] LABS: ADD SCAN DIFF NO
[2016-09-23 05:55] LABS: BASOPHILS % 0.2 % (0.0-2.0); EOSINOPHILS % 0.1 % (0.0-7.0); HEMOGLOBIN 14.7 g/dl (14.0-18.0); LYMPHOCYTES # 1.3 10^3/ul (0.8-2.9); LYMPHOCYTES % 8.5 % (15.0-51.0); MEAN CORPUSCULAR HEMOGLOBIN 30.4 pg (29.0-33.0); MEAN CORPUSCULAR HGB CONC 32.7 g/dl (32.0-37.0); MEAN PLATELET VOLUME 9.4 fl (7.4-10.4); MONOCYTE # 0.6 10^3/ul (0.3-0.9); MONOCYTES % 4.2 % (0.0-11.0); NEUTROPHIL # 13.1 10^3/ul (1.6-7.5); NEUTROPHILS % 86.1 % (39.0-77.0); PLATELET COUNT 381 10^3/UL (140-415); RED BLOOD COUNT 4.84 10^6/ul (4.70-6.10); RED CELL DISTRIBUTION WIDTH 13.9 % (11.5-14.5); WHITE BLOOD COUNT 15.2 10^3/ul (4.8-10.8)
[2016-09-23 06:11] LABS: POTASSIUM 4.8 mmol/L (3.5-5.1)
[2016-09-23 06:14] LABS: CREATININE 0.89 mg/dl (0.61-1.24)
[2016-09-23 06:15] LABS: CALCIUM 9.6 mg/dl (8.4-10.2)
[2016-09-23] MEDS: METHYLPREDNISOLONE 125 MG INJ IV SCH (06:15)
[2016-09-23] MEDS: FUROSEMIDE 40 MG INJ IV SCH (06:23)
[2016-09-23] MEDS: GLYCERIN (ADULT) SUPP PR ONE ×2 (06:30→16:43)
[2016-09-23] MEDS ORDERED: BISACODYL (EC) 5 MG TAB PO PRN (06:30)
[2016-09-23 07:44] VITALS: BP 115/82; RESP 18
[2016-09-23] MEDS: FAMOTIDINE 20 MG TAB PO SCH ×2 (09:24→20:28)
[2016-09-23] MEDS: HYDROCODONE/APAP (5/325) TAB PO PRN (09:24)
[2016-09-23] MEDS: SALMETEROL/FLUTICASONE 250/50 INHA INH SCH ×2 (09:25→20:27)
[2016-09-23] MEDS: DOCUSATE SODIUM 100 MG CAP PO SCH ×2 (09:25→20:28)
[2016-09-23] MEDS: NICOTINE (7 MG/24 HR) PATCH TRANSDERM SCH (09:25)
[2016-09-23] MEDS: TIOTROPIUM 18 MCG CAPSULE INHA DEV INH SCH (09:25)
[2016-09-23] MEDS: ENOXAPARIN 40 MG/0.4 ML SYG SC SCH (09:34)
--- NOTE | 2016-09-23 10:19 | PN ---
Date/Time of Note Date/Time of Note DATE: 09/23/16 TIME: 10:18 Assessment/Plan VTE Prophylaxis VTE Prophylaxis Intervention: LMWH Lines/Catheters [facility] Saline Lock Urinary Cath still in place: No Assessment/Plan Assessment/Plan 1. COPD exacerbation is likely secondary to viral syndrome (acute bronchitis): improving slowly 2. Nicotine dependency. Education was provided and smoking cessation has been advised. Patient on nicotine patch. 3. For deep venous thrombosis prophylaxis, on Lovenox. 4. For gastrointestinal prophylaxis, not indicated. PLAN: * Low suspicion for cardiac event, obtain CT chest in this chronic smoker with difficult to control COPD * continue abx / bronchodilator and steroid therapy * We will continue to monitor patient closely. * Further recommendations, management and treatment as per clinical course. Subjective 24 Hr Interval Summary Free Text/Dictation chest pain, persistent despite oral norco Patient feels pain is OBDULIO, he also has numbness and pain radiates to L shoulder and back on L side. Exam/Review of Systems Vital Signs Vitals Vital Signs Date Time Temp Pulse Resp B/P Pulse Ox O2 Delivery O2 Flow Rate FiO2 09/23/16 09:13 81 16 99 Nasal Cannula 3.0 09/23/16 07:44 98.1 115/82 09/21/16 12:39 32 Intake and Output 09/22/16 09/22/16 09/23/16 15:00 23:00 07:00 Intake Total 100 ml 840 ml 800 ml Balance 100 ml 840 ml 800 ml Exam Constitutional: alert, oriented Psych: anxiety Eyes: PERRL, No icteric ENMT: mucosa pink and moist Respiratory: diminished breath sounds, wheezing Cardiovascular: nl pulses, No murmurs/extra sounds Gastrointestinal: bowel sounds, non-tender, soft Neurological: nl mental status, nl speech, nl strength Results Result Diagram: 09/23/16 0458 09/23/16 0458 Results 24 hrs Laboratory Tests Test 09/23/16 04:58 Anion Gap 16 Basophils # 0.0 Basophils % 0.2 Blood Urea Nitrogen 23 H Calcium Level 9.6 Carbon Dioxide Level 30 Chloride Level 99 Creatinine 0.89 Eosinophils # 0.0 Eosinophils % 0.1 Glucose Level 118 Hematocrit 45.0 Hemoglobin 14.7 Lymphocytes # 1.3 Lymphocytes % 8.5 L Mean Corpuscular Hemoglobin 30.4 Mean Corpuscular Hemoglobin Concent 32.7 Mean Corpuscular Volume 93.0 Mean Platelet Volume 9.4 Monocytes # 0.6 Monocytes % 4.2 Neutrophils # 13.1 H Neutrophils % 86.1 H Nucleated Red Blood Cells # 0.0 Nucleated Red Blood Cells % 0.0 Platelet Count 381 Potassium Level 4.8 Red Blood Count 4.84 Red Cell Distribution Width 13.9 Sodium Level 140 White Blood Count 15.2 H Medications Medications Current Medications Methylprednisolone Sodium Succinate 60 mg 60 mg Q8 IV Last administered on 09/23 06:15; Admin Dose 60 MG; Start 09/18/16 at 22:00 Levofloxacin/ Dextrose (Levaquin 500mg/ D5W 100 ml (Pmx)) 100 ml @ 100 mls/hr Q24H IVPB Last administered on 09/22/16 13:17; Admin Dose 100 MLS/HR; Start at 13:00 Guaifenesin/ Codeine Phosphate (Robitussin Ac Liquid Cup) 5 ml Q4H PRN PO COUGH Last administered on 09/22/16 20:58; Admin Dose 5 ML; Start 09/18/16 at 15 :00 Ondansetron HCl (Zofran Inj) 4 mg Q6H PRN IV NAUSEA AND/OR VOMITING; Start 09/18 at 15:00 Acetaminophen (Tylenol Tab) 650 mg Q6H PRN PO PAIN LEVEL 1-3 OR FEVER; Start at 15:00 Acetaminophen/ Hydrocodone Bitart ([place] (5/325)) 1 tab Q6H PRN PO MODERATE PAIN LEVEL 4-6 Last administered on 09/23/16 09:24; Admin Dose 1 TAB; Start 09/18/16 at 15:00 Enoxaparin Sodium (Lovenox) 40 mg DAILY SC Last administered on 09/23/16 09:34 ; Admin Dose 40 MG; Start 09/19/16 at 09:00 Nicotine (Nicoderm 7 Mg/ 24 Hr) 1 patch DAILY TRANSDERM Last administered on 09:25; Admin Dose 1 PATCH; Start 09/19/16 at 09:00 Docusate Sodium (Colace) 100 mg Q12 PO Last administered on 09/23/16 09:25; Admin Dose 100 MG; Start 09/19/16 at 15:00 Famotidine (Pepcid) 20 mg BID PO Last administered on 09/23/16 09:24; Admin Dose 20 MG; Start 09/19/16 at 21:00 Furosemide (Lasix) 40 mg DAILY@06 IV Last administered on 09/23/16 06:23; Admin Dose 40 MG; Start 09/22/16 at 11:30 Salmeterol Xinafoate/ Fluticasone (Advair 250/50 Diskus) 1 inh BID INH Last administered on 09/23/16 09:25; Admin Dose 1 INH; Start 09/22/16 at 15:00 Tiotropium [place] (Spiriva) 1 inh DAILY INH Last administered on 09/23/16 09: 25; Admin Dose 1 INH; Start 09/22/16 at 15:00 Bisacodyl (Dulcolax) 10 mg DAILY PRN PO CONSTIPATION Last administered on 06:19; Admin Dose 10 MG; Start 09/23/16 at 06:30 DORINDA VIRGEN Sep 23, 2016 10:19
[2016-09-23] MEDS ORDERED: morphine 2 MG INJ IV ONE (10:30)
[2016-09-23] MEDS ORDERED: IOHEXOL 300MG/ML 150 ML BTL ONE (11:25)
[2016-09-23] MEDS ORDERED: SOD CHLORIDE 0.9% 100 ML ONE (11:25)
--- NOTE | 2016-09-23 12:15 | CONS ---
Date/Time of Note Date/Time of Note DATE: 09/23/16 TIME: 12:13 Assessment/Plan Assessment/Plan Additional Assessment/Plan Assessment recommendations; next 1. Patient admitted for severe COPD exacerbation and acute bronchitis with marked clinical improvement. Next Discontinue Solu-Medrol as well as Levaquin. Start the patient on prednisone 30 mg daily. Continue other medications. The patient has just returned from CT imaging of the chest once it is available I will review it. If CT is unremarkable patient likely be discharged home on a Medrol Dosepak with continuation of outpatient bronchial dilator regimen consisting of either Spiriva with Advair 100/50 one puff twice a day or Combivent inhaler 4 times daily with long-acting steroid inhaler. Consultation Date/Type/Reason Admit Date/Time Sep 19, 2016 at 12:18 Initial Consult Date 09/18/16 Type of Consultation: Pulmonary 24 HR Interval Summary Free Text/Dictation Patient condition is stable. Denies any wheezing, shortness of breath is markedly improved. Denies any fever chills. General exam; elderly male, currently in no distress, awake and alert. Exam/Review of Systems Vital Signs Vitals Vital Signs Date Time Temp Pulse Resp B/P Pulse Ox O2 Delivery O2 Flow Rate FiO2 09/23/16 09:13 81 16 99 Nasal Cannula 3.0 09/23/16 07:44 98.1 115/82 09/21/16 12:39 32 Intake and Output 09/22/16 09/22/16 09/23/16 15:00 23:00 07:00 Intake Total 100 ml 840 ml 800 ml Balance 100 ml 840 ml 800 ml Exam H EENT examination; supple neck, no JVD. No lymphadenopathy. Midline trachea. Patient has multiple missing teeth. Pharynx is clear. Chest examination; diminished but clear breath sounds bilaterally no added sounds. S1-S2 audible, no murmurs. Regular rhythm. Abdomen examination; soft, nontender. No organomegaly. Bowel sounds audible. Extremity exam is; no peripheral edema. RADIO COMMENTATOR examination; no focal deficit. Results Result Diagram: 09/23/16 0458 09/23/16 0458 Results 24 hrs Laboratory Tests Test 09/23/16 04:58 Anion Gap 16 Basophils # 0.0 Basophils % 0.2 Blood Urea Nitrogen 23 H Calcium Level 9.6 Carbon Dioxide Level 30 Chloride Level 99 Creatinine 0.89 Eosinophils # 0.0 Eosinophils % 0.1 Glucose Level 118 Hematocrit 45.0 Hemoglobin 14.7 Lymphocytes # 1.3 Lymphocytes % 8.5 L Mean Corpuscular Hemoglobin 30.4 Mean Corpuscular Hemoglobin Concent 32.7 Mean Corpuscular Volume 93.0 Mean Platelet Volume 9.4 Monocytes # 0.6 Monocytes % 4.2 Neutrophils # 13.1 H Neutrophils % 86.1 H Nucleated Red Blood Cells # 0.0 Nucleated Red Blood Cells % 0.0 Platelet Count 381 Potassium Level 4.8 Red Blood Count 4.84 Red Cell Distribution Width 13.9 Sodium Level 140 White Blood Count 15.2 H Medications Medications Current Medications Methylprednisolone Sodium Succinate 60 mg 60 mg Q8 IV Last administered on 09/23 06:15; Admin Dose 60 MG; Start 09/18/16 at 22:00 Levofloxacin/ Dextrose (Levaquin 500mg/ D5W 100 ml (Pmx)) 100 ml @ 100 mls/hr Q24H IVPB Last administered on 09/22/16 13:17; Admin Dose 100 MLS/HR; Start at 13:00 Guaifenesin/ Codeine Phosphate (Robitussin Ac Liquid Cup) 5 ml Q4H PRN PO COUGH Last administered on 09/22/16 20:58; Admin Dose 5 ML; Start 09/18/16 at 15 :00 Ondansetron HCl (Zofran Inj) 4 mg Q6H PRN IV NAUSEA AND/OR VOMITING; Start 09/18 at 15:00 Acetaminophen (Tylenol Tab) 650 mg Q6H PRN PO PAIN LEVEL 1-3 OR FEVER; Start at 15:00 Acetaminophen/ Hydrocodone Bitart ([place] (5/325)) 1 tab Q6H PRN PO MODERATE PAIN LEVEL 4-6 Last administered on 09/23/16 09:24; Admin Dose 1 TAB; Start 09/18/16 at 15:00 Enoxaparin Sodium (Lovenox) 40 mg DAILY SC Last administered on 09/23/16 09:34 ; Admin Dose 40 MG; Start 09/19/16 at 09:00 Nicotine (Nicoderm 7 Mg/ 24 Hr) 1 patch DAILY TRANSDERM Last administered on 09:25; Admin Dose 1 PATCH; Start 09/19/16 at 09:00 Docusate Sodium (Colace) 100 mg Q12 PO Last administered on 09/23/16 09:25; Admin Dose 100 MG; Start 09/19/16 at 15:00 Famotidine (Pepcid) 20 mg BID PO Last administered on 09/23/16 09:24; Admin Dose 20 MG; Start 09/19/16 at 21:00 Furosemide (Lasix) 40 mg DAILY@06 IV Last administered on 09/23/16 06:23; Admin Dose 40 MG; Start 09/22/16 at 11:30 Salmeterol Xinafoate/ Fluticasone (Advair 250/50 Diskus) 1 inh BID INH Last administered on 09/23/16 09:25; Admin Dose 1 INH; Start 09/22/16 at 15:00 Tiotropium [place] (Spiriva) 1 inh DAILY INH Last administered on 09/23/16 09: 25; Admin Dose 1 INH; Start 09/22/16 at 15:00 Bisacodyl (Dulcolax) 10 mg DAILY PRN PO CONSTIPATION Last administered on 06:19; Admin Dose 10 MG; Start 09/23/16 at 06:30 KAREN GAITAN Sep 23, 2016 12:15
--- NOTE | 2016-09-23 12:41 | RADRPT ---
PROCEDURE: CT Chest with contrast. CLINICAL INDICATION: COPD exacerbation TECHNIQUE: CT scan of the chest with contrast was performed on the [employer] CT scanner. The pat ient was scanned following the uncomplicated intravenous administration of 90 cc of Isovue 300 intra venous contrast. Coronal and sagittal reformatted images were obtained from the axial source images. DLP 357.1 mGycm CTDIvol 7.9 mGy COMPARISON: None. FINDINGS: Emphysema is seen bilaterally with areas of subpleural scarring. There is diffuse airways wall thickening is seen with multifocal areas of mucus plugging seen throug hout the lower lungs. Within the right lower lobe there is trace peribronchial ground-glass and nod ularity present. There is no other lung parenchymal consolidation with no effusion or pneumothorax. Extensive aortic and coronary artery atherosclerotic calcifications are present. There are no enlar ged axillary or mediastinal lymph nodes. There is no acute upper abdominal abnormality. Note is made of a fecal filled colon. Degenerative c hanges are seen within the thoracic spine and shoulders with no acute osseous abnormality. IMPRESSION: Bilateral airways wall thickening is seen with multifocal areas of lower lung mucus plugging suggest félix for airways inflammation or atypical infection. There is trace right lower lobe peribronchial g round-glass associated. Emphysema and scarring. Atherosclerotic disease is present. RPTAT: AA .Latonya Stark MD, Date Time Electronically viewed and signed by .Latonya Stark MD, MD on 09/23/2016 12:41 .Kym/
[2016-09-23 17:00] VITALS: RESP 18
[2016-09-23 20:15] VITALS: BP 124/67; PULSE 92; RESP 20
[2016-09-24] MEDS: ALBUTEROL/IPRATROPIUM (NEB) 3 ML AMP HHN SCH ×4 (00:37→13:10)
[2016-09-24 05:40] LABS: ADD SCAN DIFF NO
[2016-09-24 05:52] LABS: BASOPHILS % 0.2 % (0.0-2.0); EOSINOPHILS # 0.2 10^3/ul (0.0-0.5); EOSINOPHILS % 1.1 % (0.0-7.0); HEMOGLOBIN 13.5 g/dl (14.0-18.0); LYMPHOCYTES # 2.9 10^3/ul (0.8-2.9); LYMPHOCYTES % 19.5 % (15.0-51.0); MEAN CORPUSCULAR HEMOGLOBIN 30.2 pg (29.0-33.0); MEAN CORPUSCULAR HGB CONC 32.1 g/dl (32.0-37.0); MEAN PLATELET VOLUME 9.2 fl (7.4-10.4); MONOCYTE # 1.5 10^3/ul (0.3-0.9); MONOCYTES % 10.1 % (0.0-11.0); NEUTROPHILS % 67.5 % (39.0-77.0); PLATELET COUNT 369 10^3/UL (140-415); RED BLOOD COUNT 4.47 10^6/ul (4.70-6.10); RED CELL DISTRIBUTION WIDTH 13.9 % (11.5-14.5); WHITE BLOOD COUNT 14.8 10^3/ul (4.8-10.8)
[2016-09-24] MEDS: FUROSEMIDE 40 MG INJ IV SCH (05:55)
[2016-09-24 06:13] LABS: POTASSIUM 3.8 mmol/L (3.5-5.1)
[2016-09-24 06:15] LABS: CREATININE 1.05 mg/dl (0.61-1.24)
[2016-09-24 06:16] LABS: CALCIUM 8.6 mg/dl (8.4-10.2)
[2016-09-24 07:54] VITALS: BP 103/73; RESP 18
[2016-09-24] MEDS: NICOTINE (7 MG/24 HR) PATCH TRANSDERM SCH (08:29)
[2016-09-24] MEDS: TIOTROPIUM 18 MCG CAPSULE INHA DEV INH SCH (08:29)
[2016-09-24] MEDS: DOCUSATE SODIUM 100 MG CAP PO SCH (08:29)
[2016-09-24] MEDS: FAMOTIDINE 20 MG TAB PO SCH (08:29)
[2016-09-24] MEDS: SALMETEROL/FLUTICASONE 250/50 INHA INH SCH (08:29)
[2016-09-24] MEDS: ENOXAPARIN 40 MG/0.4 ML SYG SC SCH (08:33)
[2016-09-24] MEDS ORDERED: predniSONE 20 MG TAB PO SCH (09:00)
[2016-09-24] MEDS ORDERED: predniSONE 10 MG TAB PO SCH (09:00)
[2016-09-24] MEDS: GUAIFENESIN/CODEINE 5ML CUP PO PRN (12:21)
[2016-09-24] MEDS ORDERED: PRED20 PO (12:30)
[2016-09-24] MEDS ORDERED: TIOT18CA INH (12:30)
[2016-09-24] MEDS ORDERED: ADV25050 INH (12:30)
[2016-09-24] MEDS ORDERED: FAMO20TA18 PO (12:30)
[2016-09-24] MEDS ORDERED: POTA8CAP PO (12:31)
[2016-09-24] MEDS ORDERED: FURO-110 PO (12:31)
--- NOTE | 2016-09-24 12:32 | PDOCDIS ---
Discharge Instructions DIAGNOSIS Discharge Diagnosis: COPD exacerbation CONDITION Patient Condition: Stable HOME CARE INSTRUCTIONS: Special Diet: Low cholesterol and low fat ACTIVITY: Activity Restrictions: Slowly Increase Activity Rest between Activity FOLLOW UP/APPOINTMENTS Appointments Followup with your primary doctor within the next 1 weeks. If you don't have one please let someone know, we can give you resources that may help you pick one. You may also call your insurance company to assign one to you. Review your medication list with your nurse before leaving and if you need new prescriptions please let your nurse know. I may have made changes to your home medications or given you new prescriptions , please let your primary doctor know as well. Stay compliant with your medications and report any side effects to your PCP or pharmacist. Return to the ER if you have any concerns and cannot reach your doctors or call your insurance company, they usually have a nurse that can help you. OTHER ORDERS: Other Orders: .Please stop smoking. If you have already stopped, Good for you!!!. It is however an ongoing process. If you need help or resources, please let someone know before you leave. We are here to help you. It has been associated with a lot of disease processes and is not favourable for healing. DORINDA VIRGEN Sep 24, 2016 12:32
[2016-09-24] MEDS ORDERED: PRED10TA PO (12:50)
[2016-09-24] MEDS ORDERED: IPRA4AER INHALATION (12:50)
[2016-09-24] MEDS ORDERED: LEVO750T25 PO (12:51)
[2016-09-24 15:02] VITALS: BP 113/73; PULSE 97; RESP 18
--- NOTE | 2016-09-24 20:53 | DS ---
DATE OF ADMISSION: 09/19/2016 DATE OF DISCHARGE: 09/24/2016 PRESENTING COMPLAINT: Shortness of breath. ADMISSION DIAGNOSES: 1. Asthma exacerbation, likely secondary to viral syndrome. 2. History of nicotine dependency. FINAL DIAGNOSES: 1. Severe chronic obstructive pulmonary disease exacerbation. 2. Acute bronchitis/viral syndrome. 3. Tobacco abuse and nicotine dependence. CONSULTANTS ON THE CASE: Pan Yarbrough MD, as well as Willam Trevino MD, for pulmonary. IMAGIN. He had a chest x-ray, 09/18/2016, showed mild chronic interstitial changes and mild hyperinflati on without acute infiltrates. 2. CT scan of the chest, 09/23/2016, showed bilateral airway wall thickening with multifocal areas of lower lung mucous plugging suggestive of airway inflammation or atypical infection, trace right l ower lobe peribronchial ground glass associated emphysema and scarring and atherosclerosis. HOSPITALIZATION COURSE: Full details available in the chart for review. 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 He had been treating himself with rfyd-fix-uunqvko medications, such as TheraFlu and Tylenol, without resolution . And was found to be tachycardia, tachypneic, hypertensive, and hypoxic in the emergency room and he was admitted for further management. He was found to have severe COPD exacerbation and required about 5 days of inpatient hospitalization on scheduled bronchodilator therapy, intravenous steroids, intravenous antibiotics, and has done well. The patient is much improved at this time, but is not fully recovered, but he is stable for outpatient followup. He is recommended to stay home and recov er fully before returning to work. DISCHARGE DISPOSITION: Stable. ACTIVITIES: As tolerated. DISCHARGE MEDICATIONS: As follows: 1. Combivent inhalation q.4 hours scheduled for the next 2 to 3 days and then p.r.n. after that. 2. Famotidine 20 p.o. b.i.d. 3. Lasix 20 daily. 4. Levaquin 750 daily for 7 days. 5. Potassium chloride 8 mEq p.o. daily. 6. Prednisone taper [address] through 10 mg over the next 6 days. 7. Advair 250/50 one inhalation b.i.d. 8. Tiotropium 1 inhalation daily. OTHER DISCHARGE INSTRUCTIONS: Tobacco cessation was strongly counseled and the patient reports that he will not smoke tobacco anymore. I offered nicotine patches, but the patient felt that it was mo re of an issue of willpower than medication. He reports that his used to be a chronic smoker a nd quit without any help and he felt sure he could do the same. He was counseled on the vast detail s on the severe state of his emphysema/COPD and the patient seems to understand and is motivated to quit tobacco use. At this time, I am comfortable with discharging with outpatient followup with his primary care physician in the next 1 to 2 weeks. Overall time spent on discharge counseling, reconciliation, and speaking with the certified retinal angiographer has been more than half an hour. For further information and clarification, please review the patient's chart and my orders. Dictated By: DORINDA VIRGEN MD BA/NTS Conf#: [id number] DID#: [id number] CC: JG BOONE MD;*EndCC*
== END 2016-09-24 14:55 | disposition home or self-care (01) | DRG 190 ==
LOC: E/R 11:45 → MS2 13:38 → OBSVTOIN 09-19 12:18
PROVIDERS: ADMIT Family Medicine; ATTEND Family Medicine
DX: J44.0 Chronic obstructive pulmonary disease with (acute) lower respiratory infection (principal); J96.91 Respiratory failure, unspecified with hypoxia; J44.1 Chronic obstructive pulmonary disease with (acute) exacerbation; J20.8 Acute bronchitis due to other specified organisms; R09.02 Hypoxemia; F17.200 Nicotine dependence, unspecified, uncomplicated
CPT/HCPCS: 36415; 71010; 71260; 80048; 80053; 83605; 83735; 84484; 85025; 85610; 85730; 87040; 93005; 94640; 94664; 96374; G0378; J1650; J1940; J1956; J2270; J2930; J7512; Q9967

== ENCOUNTER 2017-02-23 10:18 | Inpatient (IN) | payer BC ==
[~2017-02-23] VITALS: Ht 190.5 cm; Wt 77.2 kg
[~2017-02-23 10:18] MED LIST: ADV25050 INH; FAMO20TA18 PO; FURO-110 PO; IPRA4AER INHALATION; LEVO750T25 PO; POTA8CAP PO; PRED10TA PO; TIOT18CA INH
[2017-02-23 10:23] VITALS: Ht 190.5 cm; Wt 77.2 kg
[2017-02-23] MEDS ORDERED: SOD CHLORIDE 0.9% 1,000 ML IV STA (10:43)
[2017-02-23] MEDS ORDERED: LIDOCAINE 1% (MDV) 20 ML INJ SC ONE (11:00)
[2017-02-23 11:50] LABS: INR 0.92; PROTIME 12.4 Sec (12.2-14.2)
[2017-02-23 11:52] LABS: ANION GAP 16 (8-16); BLOOD UREA NITROGEN 16 mg/dl (7-20); CALCIUM 9.6 mg/dl (8.4-10.2); CARBON DIOXIDE 26 mmol/L (21-31); CHLORIDE 105 mmol/L (97-110); CREATININE 1.07 mg/dl (0.61-1.24); GLUCOSE 92 mg/dl (70-220); POTASSIUM 4.2 mmol/L (3.5-5.1); SODIUM 143 mmol/L (135-144)
--- NOTE | 2017-02-23 12:06 | RADRPT ---
PROCEDURE: XR Chest. CLINICAL INDICATION: Chest pain TECHNIQUE: Single frontal view of the chest was obtained. COMPARISON: 09/18/16 FINDINGS: The heart is within normal limits. The thoracic aorta is calcified. There is a mild patchy right lower lobe infiltrate versus atelectasis. The lungs are otherwise clear. There is no pleural effusion or pneumothorax. RPTAT: AA IMPRESSION: Mild patchy right lower lobe infiltrate versus atelectasis. Calcified aorta consistent with atherosclerotic disease. .Ashish Mckeon MD, Date Time Electronically viewed and signed by .Ashish Mckeon MD, on 02/23/2017 12:05 .S/
[2017-02-23 12:13] LABS: TROPONIN-I < 0.012 ng/ml (0.00-0.12)
--- NOTE | 2017-02-23 12:53 | ERA ---
ER Documentation Chief Complaint Date/Time DATE: 02/23/17 TIME: 12:48 Chief Complaint SYNCOPE WITH FOREHEAD LACERATION HPI This is 66-year-old man is brought in by EMS for syncope. The patient states he was standing at a bus stop waiting for the bus when he became suddenly lightheaded and passed out. The patient had no preceding symptoms of chest pain shortness of breath or headache. The patient states he woke up on the ground and complained of pain to his left forehead where he sustained a laceration. The patient said it was warm outside but not excessively hot he was probably waiting for the bus for about 15-20 minutes. Patient has no focal neurological complaints of numbness weakness. No recent illness. ROS All systems reviewed and are negative except as per history of present illness. Medications Home Meds Discontinued Scripts Levofloxacin* (Levaquin*) 750 Mg Tablet, 750 MG PO DAILY for 7 Days, TAB Prov:PARAMBRUCE CoyleO M. 09/24/16 Albuterol/Ipratropium* (Combivent Respimat*) 20-100 Mcg/Inh - 4 Gm Aer.w.adap, 1 PUFF INHALATION Q4H, #1 INHALER Prov:DORINDA VIRGEN . 09/24/16 Prednisone* (Prednisone*) 10 Mg Tab, 10 MG PO DAILY, #21 TAB Prov:DORINDA VIRGEN . 09/24/16 Potassium Chloride* (Potassium Chloride*) 8 Meq Capsule.er, 8 MEQ PO DAILY for 5 Days, CAP Prov:PARAMDORINDA Coyle M. 09/24/16 Furosemide* (Lasix*) 20 Mg Tablet, 20 MG PO DAILY for 5 Days, TAB Prov:PARAMBRUCEO M. 09/24/16 Famotidine* (Famotidine*) 20 Mg Tablet, 20 MG PO BID for 14 Days, TAB Prov:PARAMBRUCEO . 09/24/16 Tiotropium [place]* (Spiriva*) 18 Mcg Cap.w.dev, 1 INH INH DAILY, #1 VIAL 1 Refill Prov:DORINDA VIRGEN . 09/24/16 Salmeterol Xinaf/Fluticasone* (Advair*) 250-50 Diskus Inhaler, 1 INH INH BID, # 1 VIAL 1 Refill Prov:DORINDA VIRGEN M. 09/24/16 Allergies Allergies: Coded Allergies: No Known Allergy (Unverified , 02/23/17) PMhx/Soc History of Surgery: Yes (left testicle removal) Anesthesia Reaction: No Hx Neurological Disorder: No Hx Respiratory Disorders: Yes (COPD) Hx Cardiac Disorders: No Hx Psychiatric Problems: No Hx Miscellaneous Medical Probl: No Hx Alcohol Use: No Hx Substance Use: No Hx Tobacco Use: Yes Smoking Status: Current every day smoker FmHx Family History: No coronary disease Physical Exam Vitals Vital Signs Date Time Temp Pulse Resp B/P Pulse Ox O2 Delivery O2 Flow Rate FiO2 02/23/17 10:23 97.2 61 18 143/83 95 Physical Exam Const: Well-developed, well-nourished Head: Patient is a left cheek abrasion underneath his eye. There is also a laceration above the left eyebrow that is approximately a total length of 5 cm in a stellate pattern, normocephalic Eyes: Normal Conjunctiva, PERRLA, EOMI, normal sclera, no nystagmus ENT: Normal External Ears, Nose and Mouth, moist mucus membranes. Neck: Full range of motion. No meningismus, no lymphadenopathy. Resp: Clear to auscultation bilaterally, no wheezing, rhonchi, rales Cardio: Regular rate and rhythm, no murmurs, S1 S2 present Abd: Soft, non tender x 4, non distended. Normal bowel sounds, no guarding or rebound, no pulsitile abdominal masses or bruits Skin: No petechiae or rashes, no ecchymosis , no maculopapular rash Back: No midline or flank tenderness Ext: No cyanosis, or edema, FROM x 4, normal inspection, neurovascularly intact x 4, the left hand has some swelling to the dorsal aspect of it and there is tenderness to palpation and range of motion Neur: Awake and alert, STR 5/5 x 4, sensation intact x 4, no focal findings, cerebellum intact Psych: Normal Mood and Affect Result Diagram: 02/23/17 1250 02/23/17 1105 Results 24 hrs Laboratory Tests Test 02/23/17 11:05 02/23/17 12:50 02/23/17 13:05 Sodium Level 143mmol/L Potassium Level 4.2mmol/L Chloride Level 105mmol/L Carbon Dioxide Level 26mmol/L Anion Gap 16 Blood Urea Nitrogen 16mg/dl Creatinine 1.07mg/dl Glucose Level 92mg/dl Calcium Level 9.6mg/dl Troponin I < 0.012ng/ml White Blood Count 9.810^3/ul Red Blood Count 4.5310^6/ul Hemoglobin 13.6g/dl Hematocrit 41.1% Mean Corpuscular Volume 90.7fl Mean Corpuscular Hemoglobin 30.0pg Mean Corpuscular Hemoglobin Concent 33.1g/dl Red Cell Distribution Width 13.6% Platelet Count 74270^3/UL Mean Platelet Volume 9.5fl Neutrophils % 82.5% Lymphocytes % 10.3% Monocytes % 5.0% Eosinophils % 1.4% Basophils % 0.5% Nucleated Red Blood Cells % 0.0/100WBC Neutrophils # 8.110^3/ul Lymphocytes # 1.010^3/ul Monocytes # 0.510^3/ul Eosinophils # 0.110^3/ul Basophils # 0.110^3/ul Nucleated Red Blood Cells # 0.010^3/ul Prothrombin Time 12.4Sec Prothrombin Time Ratio 1.0 INR International Normalized Ratio 0.92 Activated Partial Thromboplast Time Pending Urine Color STRAW Urine Clarity CLEAR Urine pH 6.0 Urine Specific [place] 1.006 Urine Ketones NEGATIVEmg/dL Urine Nitrite NEGATIVEmg/dL Urine Bilirubin NEGATIVEmg/dL Urine Urobilinogen NEGATIVEmg/dL Urine Leukocyte Esterase NEGATIVELeu/ul Urine Hemoglobin NEGATIVEmg/dL Urine Glucose NEGATIVEmg/dL Urine Total Protein NEGATIVEmg/dl Current Medications Medications (Trade) Dose Ordered Sig/Ash Route PRN Reason Start Time Stop Time Status Last Admin Dose Admin Sodium Chloride (NS) 1,000 ml @ 1,000 mls/hr Q1H STAT IV 02/23/17 10:43 02/23/17 11:42 DC 02/23/17 12:24 Lidocaine (Xylocaine 1% (Mdv) 20 ml) 20 ml ONCE ONCE SC 02/23/17 11:00 02/23/17 11:01 DC Procedures/MDM EKG: Rate/Rhythm: Sinus bradycardia with a heart rate of 51 QRS, ST, QT: NORMAL FL, QRS, QT] Impression: Sinus bradycardia Laceration Repair by me: Anesthesia: 1% lidocaine locally Location: Left forehead Tendon/Joint/Nerves: No injury Foreign body: None detected after copious irrigation and exploration Technique: Simple Interrupted Sutures Complexity: No subcutaneous sutures/mucosal repair/ edge excision Post Closure Length: 5] cm Patient's bleeding was easily controlled in the department and there is no indication of anemia. No evidence of compartment syndrome, neurologic injury, vascular injury, open joint, tendon laceration, or foreign body. Patient is appropriate for outpatient follow up. 48 hour wound check. Scar minimization instructions given. Patient: EDMUND NICOLAS : 1950 Age: 66 Sex: M MR #: [id number] DOS: 02/23/17 1043 Ordering MD: SALMA PÉREZ DO Location: E/R Room/Bed: PROCEDURE: XR Chest. CLINICAL INDICATION: Chest pain TECHNIQUE: Single frontal view of the chest was obtained. COMPARISON: 09/18/16 FINDINGS: The heart is within normal limits. The thoracic aorta is calcified. There is a mild patchy right lower lobe infiltrate versus atelectasis. The lungs are otherwise clear. There is no pleural effusion or pneumothorax. RPTAT: AA IMPRESSION: Mild patchy right lower lobe infiltrate versus atelectasis. Calcified aorta consistent with atherosclerotic disease. .Ashish Mckeon MD, MD Date Time Electronically viewed and signed by .Ashish Mckeon MD, MD on 02/23/2017 12: 05 .S/ CC: SALMA PÉREZ DO PROCEDURE: Noncontrast CT Head. CLINICAL INDICATION: Syncope. TECHNIQUE: Noncontrast CT of the head was obtained. The administered radiation dose was CTDI vol = 42.81 mGy, DLP = 720.23 mGy-cm. One or more of the following dose reduction techniques were used: Automated exposure control, Adjustment of the mA and/or kV according to patient size, or Use of iterative reconstruction technique. COMPARISON: There are no similar studies submitted for comparison. FINDINGS: There is mild generalized cerebral volume loss. There is minimal periventricular hypoattenuation suggesting chronic microvascular ischemic changes. There are mild vascular calcifications within the intracranial carotid arteries. There is no loss of sidhu-white differentiation to suggest acute territorial infarction. There is no acute intracranial hemorrhage. There is no mass effect. No midline shift is identified. The orbits are within normal limits. There is mild to moderate No destructive osseous lesion is identified. There is mild left frontal scalp hematoma. IMPRESSION: 1. No acute intracranial hemorrhage. 2. Mild generalized cerebral volume loss. 3. Minimal chronic microvascular ischemic changes. 4. Mild left frontal scalp hematoma. Further findings as detailed above. RPTAT: PP .Sherif Hensley MD, Date Time Electronically viewed and signed by .Sherif Hensley MD, on 02/23/2017 13:26 .F/ CC: SALMA PÉREZ DO PROCEDURE: XR Hand. CLINICAL INDICATION: Pain. Trauma. TECHNIQUE: Left hand x-rays, three views. COMPARISON: None. FINDINGS: Bone density appears normal. There is no visible fracture. Severe joint space narrowing with articular surface sclerosis and osteophyte formation is observed at the first carpometacarpal joint. Subchondral cystic changes are seen within the lunate bone. The remaining joint spaces are unremarkable. Soft tissues are unremarkable. IMPRESSION: Severe degenerative changes of the first carpometacarpal joint. Subchondral cystic changes within the lunate. RPTAT: HLST .Sangeetha Matthews MD, Date Time Electronically viewed and signed by .Sangeetha Matthews MD, on 02/23/2017 13:17 .T/ CC: SALMA PÉREZ DO Patient's syncopal symptoms are unstable at this time and require inpatient workup. No evidence of PE or dissection at this time but occult ischemia or fatal dysrhythmia cannot be ruled out. Departure Diagnosis: Primary Impression: Syncope Qualified Code: R55 - Syncope, unspecified syncope type Additional Impression: Forehead laceration Qualified Code: S01.81XA - Forehead laceration, initial encounter Condition: SALMA Carrasquillo DO Feb 23, 2017 12:53
[2017-02-23 13:06] LABS: BASOPHIL # 0.1 10^3/ul (0.0-0.1); BASOPHILS % 0.5 % (0.0-2.0); EOSINOPHILS # 0.1 10^3/ul (0.0-0.5); EOSINOPHILS % 1.4 % (0.0-7.0); HEMATOCRIT 41.1 % (42.0-52.0); HEMOGLOBIN 13.6 g/dl (14.0-18.0); LYMPHOCYTES % 10.3 % (15.0-51.0); MEAN CORPUSCULAR HGB CONC 33.1 g/dl (32.0-37.0); MEAN CORPUSCULAR VOLUME 90.7 fl (82.0-101.0); MEAN PLATELET VOLUME 9.5 fl (7.4-10.4); MONOCYTE # 0.5 10^3/ul (0.3-0.9); NEUTROPHIL # 8.1 10^3/ul (1.6-7.5); NEUTROPHILS % 82.5 % (39.0-77.0); PLATELET COUNT 251 10^3/UL (140-415); RED BLOOD COUNT 4.53 10^6/ul (4.70-6.10); RED CELL DISTRIBUTION WIDTH 13.6 % (11.5-14.5); WHITE BLOOD COUNT 9.8 10^3/ul (4.8-10.8)
[2017-02-23 13:14] LABS: ADD UMIC NO; UR ASCORBIC ACID 40 mg/dL (NEGATIVE); UR BILIRUBIN (Dip) NEGATIVE (NEGATIVE); UR BLOOD (Dip) NEGATIVE (NEGATIVE); UR CLARITY CLEAR (CLEAR); UR COLOR STRAW (YELLOW); UR GLUCOSE (Dip) NEGATIVE (NEGATIVE); UR KETONES (Dip) NEGATIVE (NEGATIVE); UR LEUKOCYTE ESTERASE (Dip) NEGATIVE Leu/ul (NEGATIVE); UR NITRITE (Dip) NEGATIVE (NEGATIVE); UR SPECIFIC GRAVITY (Dip) 1.006 (1.003-1.030); UR TOTAL PROTEIN (Dip) NEGATIVE (NEGATIVE); UR UROBILINOGEN (Dip) NEGATIVE (NEGATIVE)
--- NOTE | 2017-02-23 13:17 | RADRPT ---
PROCEDURE: XR Hand. CLINICAL INDICATION: Pain. Trauma. TECHNIQUE: Left hand x-rays, three views. COMPARISON: None. FINDINGS: Bone density appears normal. There is no visible fracture. Severe joint space narrowing with articu lar surface sclerosis and osteophyte formation is observed at the first carpometacarpal joint. Subch ondral cystic changes are seen within the lunate bone. The remaining joint spaces are unremarkable. Soft tissues are unremarkable. IMPRESSION: Severe degenerative changes of the first carpometacarpal joint. Subchondral cystic changes within the lunate. RPTAT: HLST .Sangeetha Matthews MD, Date Time Electronically viewed and signed by .Sangeetha Matthews MD, on 02/23/2017 13:17 .T/
--- NOTE | 2017-02-23 13:26 | RADRPT ---
PROCEDURE: Noncontrast CT Head. CLINICAL INDICATION: Syncope. TECHNIQUE: Noncontrast CT of the head was obtained. The administered radiation dose was CTDI vol = 42.81 mGy, DLP = 720.23 mGy-cm. One or more of the following dose reduction techniques were used: Au tomated exposure control, Adjustment of the mA and/or kV according to patient size, or Use of iterat félix reconstruction technique. COMPARISON: There are no similar studies submitted for comparison. FINDINGS: There is mild generalized cerebral volume loss. There is minimal periventricular hypoattenuation sug gesting chronic microvascular ischemic changes. There are mild vascular calcifications within the intracranial carotid arteries. There is no loss of sidhu-white differentiation to suggest acute territorial infarction. There is no acute intracranial hemorrhage. There is no mass effect. No midline shift is identified. The orbits are within normal limits. There is mild to moderate No destructive osseous lesion is identified. There is mild left frontal scalp hematoma. IMPRESSION: 1. No acute intracranial hemorrhage. 2. Mild generalized cerebral volume loss. 3. Minimal chronic microvascular ischemic changes. 4. Mild left frontal scalp hematoma. Further findings as detailed above. RPTAT: PP .Sherif Hensley MD, Date Time Electronically viewed and signed by .Sherif Hensley MD, on 02/23/2017 13:26 .F/
[2017-02-23 13:34] LABS: PARTIAL THROMBOPLASTIN TIME 27.4 Sec (25.0-35.0)
[2017-02-23] MEDS ORDERED: ONDANSETRON 4 MG INJ IV STA (13:46)
[2017-02-23] MEDS ORDERED: HYDROmorphONE 1 MG/ML SYG IV STA (13:46)
[2017-02-23] MEDS ORDERED: SOD CHLORIDE 0.9% 1,000 ML IV SCH (13:50)
[2017-02-23] MEDS ORDERED: ACETAMINOPHEN 325 MG TAB PO PRN ×2 (14:00→15:00)
[2017-02-23] MEDS ORDERED: ONDANSETRON 4 MG INJ IV PRN ×2 (14:00→15:00)
[2017-02-23] MEDS ORDERED: BISACODYL (EC) 5 MG TAB PO PRN (15:00)
[2017-02-23] MEDS ORDERED: NACL 0.9% 3 ML SYG IV SCH (15:00)
[2017-02-23] MEDS ORDERED: MAGNESIUM HYDROXIDE 30ML CUP PO PRN (15:00)
[2017-02-23] MEDS ORDERED: ONDANSETRON 4 MG TAB PO PRN (15:00)
[2017-02-23] MEDS ORDERED: DOCUSATE SODIUM 100 MG CAP PO PRN (15:00)
--- NOTE | 2017-02-23 16:16 | RADRPT ---
PROCEDURE: CT cervical spine without contrast. CLINICAL INDICATION: Fall, right neck pain TECHNIQUE: CT of the cervical spine without contrast was performed on a multidetector CT scanner, w ith multiplanar reformats. One or more of the following dose reduction techniques were used: Automa bob exposure control, adjustment in mA and / or kV according to patient size, use of iterative recon structive technique. CTDIvol = 22 mGy and DLP = 4-61 mGy-cm. COMPARISON: None available. FINDINGS: A nondisplaced fracture is identified at the posterior aspect of the right C4 transverse process ex tending up to the posterior margin of the vertebral foramen which is intact. There is reversal of t he lordosis of the cervical spine. Alignment is otherwise grossly intact. Vertebral bodies are андрей ssly maintained in height. There are anterior atlantoaxial joint degenerative changes, and anterio r osteophytes at C3-4 through C6-7 with disk space narrowing which is severe at the C3-4 partially f used disk space, moderate - severe at C4-5, C5-6 and severe posteriorly at C6-7. Hypodense nodule i n the right lobe of the thyroid is seen measuring up to 6 mm not meeting size criteria for workup. Mild emphysematous changes noted at the lung apices. C2-3: There is posterior disk bulging and ligamentum flavum hypertrophy without central canal stenos is identified. There is facet arthropathy, advanced on the left without foraminal narrowing identi fied. C3-4: There is a posterior disk/osteophyte without central canal stenosis identified. There are unc overtebral osteophytes and facet arthropathy with mild right, mild to moderate left foraminal narrow ing. C4-5: There is a posterior disk/osteophyte with mild central canal stenosis. There are uncovertebra l osteophytes and facet arthropathy with severe right, moderate - severe left foraminal narrowing. C5-6: There is a posterior disk/osteophyte with mild to moderate central canal stenosis. There are uncovertebral osteophytes and facet arthropathy with severe right, moderate - severe left foraminal narrowing. C6-7: There is a posterior disk/osteophyte with mild central canal stenosis. There are uncovertebr al osteophytes and facet arthropathy with moderate - severe bilateral foraminal narrowing. C7-T1: No disc bulge or herniation is identified. There is facet arthropathy. There is no central c anal stenosis or foraminal narrowing. IMPRESSION: 1. Nondisplaced right C4 transverse process fracture extending up to the vertebral foramen. Furthe r evaluation with CT angiography of the neck is advised to evaluate for vascular injury. 2. Advanced cervical spondylosis/degenerative enthesopathy, with reversal of the cervical lordosis. 3. Multilevel central canal stenoses and foraminal narrowing detailed above. RPTAT: VV .Seun Lan MD, Date Time Electronically viewed and signed by .Seun Lan MD, on 02/23/2017 16:16 .O/
--- NOTE | 2017-02-23 16:25 | RADRPT ---
Echocardiogram Report Patient Name: EDMUND NICOLAS Gender: Male Date: 1950 Study Date: 23-Feb-2017 Brine Room Laborer: NICOLAS Carrasquillo Location: [facility] Ref. Physician: LINN BIRD Quality: Good Procedures: Transthoracic echocardiogram with complete 2D, M-Mode, and doppler examination. Indications: Syncope. 2D/M Mode Doppler Measurement Value Normal Ranges Measurement Value Normal Ranges AoR Diam MM 3.5 cm AV Peak Neptali 1.2 m/sec ACS MM 1.8 cm AV Peak PG 6.0 mmHg LA/Ao MM 0.9 LVOT Peak Neptali 1.1 m/sec LA Dimen MM 3.2 cm LVOT Peak PG 4.4 mmHg LVIDd 2D 4.2 3.5 - 5.6 cm MV E Peak Neptali 0.7 m/sec LVIDs 2D 1.6 2.1 - 4.1 cm MV A Peak Neptali 1.1 m/sec LVPWd 2D 1.0 0.6 - 1.1 cm MV E/A 0.6 IVSd 2D 1.0 0.6 - 1.1 cm MV Decel Time 185 msec AoR Diam 2D 3.4 2.0 - 3.7 cm MV Decel Pierce 4 EDV 2D 77.4 cm3 MV E/A 0.6 ESV 2D 3.8 cm3 TR Peak Neptali 2.7 m/sec LA Dimen 2D 3.2 2.3 - 4.0 cm TR Peak PG 32.5 mmHg Findings Left Ventricle: Normal left ventricular systolic function. Ejection fraction is visually estimated at 60 %. Tissue Doppler/Mitral Doppler indices are consistent with impaired relaxation (Stage I diastolic dysfunction). Right Ventricle: Normal right ventricular size. Normal right ventricular systolic function. Left Atrium: The left atrium is normal in size. Right Atrium: The right atrium is normal in size. Mitral Valve: Normal appearance and function of the mitral valve with trace physiologic regurgitation. Aortic Valve: Normal appearance of the aortic valve. No significant aortic stenosis or insufficiency. Tricuspid Valve: There is trace tricuspid regurgitation. Pulmonic Valve: Pulmonic valve not well visualized. Pericardium: Normal pericardium with no significant pericardial effusion. Aorta: Normal aortic root. IVC: The IVC is not well visualized. Conclusions 1.Normal left ventricular systolic function. Ejection fraction is visually estimated at 60 %. Tissue Doppler/Mitral Doppler indices are consistent with impaired relaxation (Stage I diastolic dysfunction). 2.Normal appearance and function of the mitral valve with trace physiologic regurgitation. 3.There is trace tricuspid regurgitation. Electronically Signed By: Alli Hansen 23-Feb-2017 16:25:13 -0700 Patient Name: EDMUND NICOLAS Study Date: 23-Feb-2017 [id number]
[2017-02-23 16:37] VITALS: TEMP 98.4
[2017-02-23 16:40] VITALS: BP 128/77; RESP 20
[2017-02-23 17:21] VITALS: BP 128/77; PULSE 64; RESP 20
--- NOTE | 2017-02-23 17:46 | HP ---
Date/Time of Note Date/Time of Note DATE: 02/23/17 TIME: 17:46 Assessment/Plan VTE Prophylaxis VTE Prophylaxis Intervention: SCD's Assessment/Plan Assessment/Plan 66 yo M with pmhx COPD/tobacco abuse presents following a syncopal episode this AM. As was precipted by no PO and being in the heat, supsect vasovagal but reasonable to monitor x 24 hours nonetheless. Also sustained C4 transverse process fracture from his collapse #syncope TTE nl, cont tele to r/o arrhythmia #C4 transverse process fracture: dw Dr Farris of neurosurg service. No indication for procedural intervention. Advised [place] J collar x 2 weeks while WB and outpatient f/u #facial lacteration: suture removal in 48 hours #hand injury: no fractures on imaging, supportive care #tobacco abuse: NRT anticipate discharge in 1-2 days pending tele, and ability to ambulate HPI/ROS Admit Date/Time Admit Date/Time Feb 23, 2017 at 13:51 Hx of Present Illness CC: sp syncopal episode HPI 66 yo [employer] employee presents following syncopal episode earlier this morning. Pt did not eat or drink anything prior to leaving the house to catch the bus to go to work. Spent several minutes waiting for the bus and starting feeling unwell-- >clammy, lightheaded, went to sit down and next thing he knew he was on the ground. No endorsement of tongue biting or urine loss. Pt states he had a similar episode ~3 yrs ago under similar circumstances No CP/palpations/SOB. Currently has some pain in his L hand PMH/Family/Social Past Medical History tobacco abuse asthma v COPD Social History works in the [employer] dept at [employer] Smoking Status: Current every day smoker Exam/Review of Systems Vital Signs Vitals Vital Signs Date Time Temp Pulse Resp B/P Pulse Ox O2 Delivery O2 Flow Rate FiO2 02/23/17 17:21 98.4 64 20 128/77 96 Room Air Exam Exam nad, pleasant, sitting up in bed + 3 cm traumatic nodule on L side of forehead, sutured in ER +4 cm scrap to L upper cheek no mrg lungs clear abd soft no rashes no le edema neuro CN 2-12 intact bl U and LE strength and sensorium grossly intact L hand without sig swelling but ttp throughout imaging reviewed. Hand XR ok, CT spine with nondisplaced C4 transverse process fracture TTE with nl EF Labs Result Diagram: 02/23/17 1250 02/23/17 1105 Medications Medications Current Medications Sodium Chloride (NS) 1,000 ml @ 80 mls/hr [id number] IV ; Start 02/23/17 at 13:50 ; Stop 02/24/17 at 02:19 Ondansetron HCl (Zofran Tab) 4 mg Q6H PRN PO NAUSEA AND/OR VOMITING; Start 06/01 at 15:00 Ondansetron HCl (Zofran Inj) 4 mg Q6H PRN IV NAUSEA AND/OR VOMITING; Start 06/01 at 15:00 Aspirin (Aspirin) 81 mg DAILY PO ; Start 02/24/17 at 09:00 Acetaminophen (Tylenol Tab) 650 mg Q6H PRN PO PAIN LEVEL 1-3 OR FEVER; Start at 15:00 Acetaminophen/ Hydrocodone Bitart ([place] (5/325)) 1 tab Q6H PRN PO PAIN LEVEL 4 -6; Start 02/23/17 at 15:00 Docusate Sodium (Colace) 100 mg Q12H PRN PO CONSTIPATION; Start 02/23/17 at 15: 00 Magnesium Hydroxide (Milk Of Mag) 30 ml DAILY PRN PO CONSTIPATION; Start at 15:00 Bisacodyl (Dulcolax) 5 mg DAILY PRN PO CONSTIPATION; Start 02/23/17 at 15:00 Enoxaparin Sodium (Lovenox) 40 mg DAILY SC ; Start 02/24/17 at 09:00 LINN BIRD MD Feb 23, 2017 17:46
[2017-02-23] MEDS: HYDROCODONE/APAP (5/325) TAB PO PRN (18:12)
[2017-02-23] MEDS: NICOTINE (14 MG/24 HR) PATCH TRANSDERM SCH (18:35)
[2017-02-23 19:47] VITALS: BP 136/80; RESP 19
[2017-02-23 20:17] VITALS: PULSE 68
[2017-02-23] MEDS ORDERED: IOHEXOL 350MG/ML 50 ML BTL ONE (20:57)
[2017-02-23] MEDS ORDERED: IOHEXOL 100 ML ONE (20:57)
[2017-02-23] MEDS ORDERED: SOD CHLORIDE 0.9% 100 ML ONE (20:57)
[2017-02-24] VITALS (12 sets, daily range): BP systolic 124–152; BP diastolic 70–98; PULSE 53–84; RESP 16–20
[2017-02-24] MEDS: HYDROCODONE/APAP (5/325) TAB PO PRN ×2 (07:24→12:26)
[2017-02-24] MEDS: NICOTINE (14 MG/24 HR) PATCH TRANSDERM SCH (07:25)
--- NOTE | 2017-02-24 08:44 | RADRPT ---
PROCEDURE: CTA Neck. CLINICAL INDICATION: Vascular injury, fracture TECHNIQUE: The study was performed utilizing a multidetector CT scanner. Thin cut axial sections w ere obtained through the neck with the use of 100 cc of Isovue 370 nonionic intravenous contrast mat erial. Coronal and sagittal maximal intensity projection reformations were obtained. Additional 3D volumetric renderings were created. The images were reviewed on a PACS workstation. The total CTDI vol is 15/21 mGy and the DLP is 609 mGy-cm. One or more of the following dose reduction techniques w ere used: Automated exposure control, Adjustment of the mA and/or kV according to patient size, and/ or use of iterative reconstruction technique. COMPARISON: Cervical spine CT 02/23/2017 FINDINGS: Nondisplaced right C4 transverse process fracture identified. No significant stenosis or vessel diss ection of the bilateral common carotid, bilateral cervical internal carotid or bilateral vertebral a rteries. Right vertebral artery is dominant. Upper lung emphysematous changes. Right thyroid 5 mm nodule. IMPRESSION: Nondisplaced right C4 transverse process fracture again identified. No evidence of vertebral artery dissection. The major cervical arteries are patent. Upper lung emphysema. RPTAT: AA .Antonio Hernandez MD, MD Date Time Electronically viewed and signed by .Antonio Hernandez MD, on 02/24/2017 08:44 .T/
[2017-02-24] MEDS ORDERED: ASPIRIN 81 MG TAB PO SCH (09:00)
[2017-02-24] MEDS ORDERED: ENOXAPARIN 40 MG/0.4 ML SYG SC SCH (09:00)
[2017-02-24] MEDS ORDERED: DOCU-216 PO (11:13)
[2017-02-24] MEDS ORDERED: Nicotine (14 Mg/24 Hr) TRANSDERM (11:13)
[2017-02-24] MEDS ORDERED: HYDR-3498 PO (11:13)
--- NOTE | 2017-02-24 11:23 | DS ---
Date/Time of Note Date/Time of Note DATE: 02/24/17 TIME: 11:17 Discharge Summary Admission/Discharge Info Admit Date/Time Feb 23, 2017 at 13:51 Discharge Date/Time Discharge Diagnosis vasovagal syncope, C4 transverse process fracture (nondisplaced) Patient Condition: Stable Procedures 8.11 imaging NCCT CSpine IMPRESSION: 1. Nondisplaced right C4 transverse process fracture extending up to the vertebral foramen. Further evaluation with CT angiography of the neck is advised to evaluate for vascular injury. 2. Advanced cervical spondylosis/degenerative enthesopathy, with reversal of the cervical lordosis. 3. Multilevel central canal stenoses and foraminal narrowing detailed above. CTA neck IMPRESSION: Nondisplaced right C4 transverse process fracture again identified. No evidence of vertebral artery dissection. The major cervical arteries are patent. Upper lung emphysema. L hand XR IMPRESSION: Severe degenerative changes of the first carpometacarpal joint. Subchondral cystic changes within the lunate. NCCT head IMPRESSION: 1. No acute intracranial hemorrhage. 2. Mild generalized cerebral volume loss. 3. Minimal chronic microvascular ischemic changes. 4. Mild left frontal scalp hematoma. TTE 8.11 EF nl, grade I DD Hx of Present Illness CC: sp syncopal episode HPI 66 yo [employer] [facility] employee presents following syncopal episode earlier this morning. Pt did not eat or drink anything prior to leaving the house to catch the bus to go to work. Spent several minutes waiting for the bus and starting feeling unwell-- >clammy, lightheaded, went to sit down and next thing he knew he was on the ground. No endorsement of tongue biting or urine loss. Pt states he had a similar episode ~3 yrs ago under similar circumstances No CP/palpations/SOB. Currently has some pain in his L hand Hospital Course Pt's forehead abrasion was stitched up in the ER. No overnight events, pt in SR on tele. All imaging including CTA neck and TTE unremarkable. Pt's syncopal episode most likely vasovagal in origin. As per my discussion with neurosurgery on date of admission, pt discharge home with collar to wear while WB and neurosurgery follow up. Pt discharged with short course of pain meds for MSK injuries he sustained in his fall. Also advised to present to ED or PCP in 24- 48 hours to get the stitches removed from his forehead Home Meds Active Scripts Docusate Sodium (Dok) 100 Mg Capsule, 100 MG PO Q12H Y for CONSTIPATION for 7 Days, #14 CAP Prov:LINN BIRD MD 02/24/17 [Nicotine (14 Mg/24 Hr)] 1 PATCH PATCH No Conflict Check, 1 PATCH TRANSDERM DAILY for 30 Days, #30 Prov:LINN BIRD MD 02/24/17 Discontinued Scripts Levofloxacin* (Levaquin*) 750 Mg Tablet, 750 MG PO DAILY for 7 Days, TAB Prov:PARAMBONIFACIO CoyleJORDAN M. 09/24/16 Albuterol/Ipratropium* (Combivent Respimat*) 20-100 Mcg/Inh - 4 Gm Aer.w.adap, 1 PUFF INHALATION Q4H, #1 INHALER Prov:BONIFACIO VIRGENJORDAN Chance. 09/24/16 Prednisone* (Prednisone*) 10 Mg Tab, 10 MG PO DAILY, #21 TAB Prov:PARAMDORINDA. 09/24/16 Potassium Chloride* (Potassium Chloride*) 8 Meq Capsule.er, 8 MEQ PO DAILY for 5 Days, CAP Prov:BRUCE VIRGENNadya Chance. 09/24/16 Furosemide* (Lasix*) 20 Mg Tablet, 20 MG PO DAILY for 5 Days, TAB Prov:PARAMBRUCENadya Chance. 09/24/16 Famotidine* (Famotidine*) 20 Mg Tablet, 20 MG PO BID for 14 Days, TAB Prov:BRUCE VIRGENNadya Chance. 09/24/16 Tiotropium [place]* (Spiriva*) 18 Mcg Cap.w.dev, 1 INH INH DAILY, #1 VIAL 1 Refill Prov:BRUCE VIRGENNadya Chance. 09/24/16 Salmeterol Xinaf/Fluticasone* (Advair*) 250-50 Diskus Inhaler, 1 INH INH BID, # 1 VIAL 1 Refill Prov:BONIFACIO VIRGENJORDAN Chance. 09/24/16 Follow-up Plan PCP within 48 hours to have stitches removed PCP for routine f/u as well neurosurg in 2 weeks Primary Care Provider Care Physician No Primary Time spent on discharge: > 30 minutes Pending Labs Laboratory Tests Test 02/23/17 12:50 02/23/17 13:05 White Blood Count 9.810^3/ul (4.8-10.8) Red Blood Count 4.5310^6/ul (4.70-6.10) Hemoglobin 13.6g/dl (14.0-18.0) Hematocrit 41.1% (42.0-52.0) Mean Corpuscular Volume 90.7fl (82.0-101.0) Mean Corpuscular Hemoglobin 30.0pg (29.0-33.0) Mean Corpuscular Hemoglobin Concent 33.1g/dl (32.0-37.0) Red Cell Distribution Width 13.6% (11.5-14.5) Platelet Count 61993^3/UL (140-415) Mean Platelet Volume 9.5fl (7.4-10.4) Neutrophils % 82.5% (39.0-77.0) Lymphocytes % 10.3% (15.0-51.0) Monocytes % 5.0% (0.0-11.0) Eosinophils % 1.4% (0.0-7.0) Basophils % 0.5% (0.0-2.0) Nucleated Red Blood Cells % 0.0/100WBC (0.0-0.0) Neutrophils # 8.110^3/ul (1.6-7.5) Lymphocytes # 1.010^3/ul (0.8-2.9) Monocytes # 0.510^3/ul (0.3-0.9) Eosinophils # 0.110^3/ul (0.0-0.5) Basophils # 0.110^3/ul (0.0-0.1) Nucleated Red Blood Cells # 0.010^3/ul (0.0-0.0) Prothrombin Time 12.4Sec (12.2-14.2) Prothrombin Time Ratio 1.0 INR International Normalized Ratio 0.92 Activated Partial Thromboplast Time 27.4Sec (25.0-35.0) Urine Color STRAW (YELLOW) Urine Clarity CLEAR (CLEAR) Urine pH 6.0 (5.0-9.0) Urine Specific [place] 1.006 (1.003-1.030) Urine Ketones NEGATIVEmg/dL (NEGATIVE) Urine Nitrite NEGATIVEmg/dL (NEGATIVE) Urine Bilirubin NEGATIVEmg/dL (NEGATIVE) Urine Urobilinogen NEGATIVEmg/dL (NEGATIVE) Urine Leukocyte Esterase NEGATIVELeu/ul (NEGATIVE) Urine Hemoglobin NEGATIVEmg/dL (NEGATIVE) Urine Glucose NEGATIVEmg/dL (NEGATIVE) Urine Total Protein NEGATIVEmg/dl (NEGATIVE) LINN BIRD MD Feb 24, 2017 11:23
--- NOTE | 2017-02-24 11:26 | PDOCDIS ---
Discharge Instructions DIAGNOSIS Discharge Diagnosis vasovagal syncope, C4 transverse process fracture (nondisplaced) CONDITION Patient Condition: Stable HOME CARE INSTRUCTIONS: Special Diet: cardiac FOLLOW UP/APPOINTMENTS Follow-up Plan Please go to your PCP or the ER in 1-2 days for a wound check Follow up with your PCP within 7 days wear your hard collar whenever you are weightbearing for the next 2 weeks here is the contact info for the neurosurgeon. please schedule an appointment for 1-[address] Onel Avitia: Office Address [address] [place] [id number] Office LINN BIRD MD Feb 24, 2017 11:26 LINN BIRD MD Feb 24, 2017 11:26
== END 2017-02-24 16:40 | disposition home or self-care (01) | DRG 312 ==
LOC: E/R 10:18 → MS4 13:51
PROVIDERS: ADMIT Internal Medicine; ATTEND Internal Medicine
PROC: 0HQ1XZZ Repair Face Skin, External Approach (ICD-10-PCS; principal; 2017-02-23)
DX: R55 Syncope and collapse (principal); S12.301A Unspecified nondisplaced fracture of fourth cervical vertebra, initial encounter for closed fracture; F17.200 Nicotine dependence, unspecified, uncomplicated; S01.81XA Laceration without foreign body of other part of head, initial encounter; M47.9 Spondylosis, unspecified; W18.30XA Fall on same level, unspecified, initial encounter; Y92.009 Unspecified place in unspecified non-institutional (private) residence as the place of occurrence of the external cause
CPT/HCPCS: 36415; 70450; 70498; 71010; 72125; 80048; 81003; 84484; 85025; 85610; 85730; 93005; 93306; 96361; 96374; 96375; 97161; J1170; J1650; J2405; J7030; L0174; Q9967

== ENCOUNTER 2017-03-03 07:08 | Emergency (ER) | payer BC ==
[~2017-03-03] VITALS: Ht 185.4 cm; Wt 79.6 kg
[~2017-03-03 07:08] MED LIST changes: -ADV25050 INH; +DOCU-216 PO; -FAMO20TA18 PO; -FURO-110 PO; +HYDR-3498 PO; -IPRA4AER INHALATION; -LEVO750T25 PO; +Nicotine (14 Mg/24 Hr) TRANSDERM; -POTA8CAP PO; -PRED10TA PO; -TIOT18CA INH
[2017-03-03 07:11] VITALS: Ht 185.4 cm; Wt 79.6 kg
[2017-03-03] MEDS ORDERED: NEOM1PAC TP (07:54)
--- NOTE | 2017-03-03 08:08 | ERD ---
ER Documentation Chief Complaint Date/Time DATE: 03/03/17 TIME: 08:03 Chief Complaint suture removal HPI This is a 66-year-old male who presents to the emergency department today for suture removal. Patient states he is also waiting for a neurosurgeon consult and he is supposed to have an appointment in a couple weeks. States that he needs a note for work because he cannot go to work with his neck brace on and he is still waiting for the appointment for the neurosurgeon. Denies any fevers or chills. Denies any headache currently. ROS All systems reviewed and are negative except as per history of present illness. Medications Home Meds Active Scripts Neomycin Padilla/Bacitrac Zn/Poly (Triple Antibiotic Ointment) 1 Each Oint.pack, 1 EACH TP BID for 7 Days Prov:ALDAIR KWONG PA-C 03/03/17 Docusate Sodium (Dok) 100 Mg Capsule, 100 MG PO Q12H Y for CONSTIPATION for 7 Days, #14 CAP Prov:LINN BIRD MD 02/24/17 Hydrocodone Bit-Acetaminophen (Hydrocodone Bit-APAP) 5-325MG Tablet, 1 TAB PO Q6H Y for PAIN LEVEL 4-6 for 7 Days, #10 TAB Prov:LINN BIRD MD 02/24/17 [Nicotine (14 Mg/24 Hr)] 1 PATCH PATCH No Conflict Check, 1 PATCH TRANSDERM DAILY for 30 Days, #30 Prov:LINN BIRD MD 02/24/17 Allergies Allergies: Coded Allergies: No Known Allergy (Unverified , 02/23/17) PMhx/Soc History of Surgery: Yes Anesthesia Reaction: No Hx Neurological Disorder: No Hx Respiratory Disorders: No Hx Cardiac Disorders: No Hx Psychiatric Problems: No Hx Miscellaneous Medical Probl: Yes (asthma vs COPD) Hx Alcohol Use: No Hx Substance Use: No Hx Tobacco Use: Yes (smokes a half pack per day) Smoking Status: Current every day smoker Physical Exam Vitals Vital Signs Date Time Temp Pulse Resp B/P Pulse Ox O2 Delivery O2 Flow Rate FiO2 03/03/17 07:11 97.6 67 18 163/79 99 Physical Exam Const: No acute distress Head: Atraumatic Eyes: Normal Conjunctiva ENT: Normal External Ears, Nose and Mouth. Neck: Decreased range of motion..~ No meningismus. Patient in cervical neck brace Resp: Clear to auscultation bilaterally Cardio: Regular rate and rhythm, no murmurs Abd: Soft, non tender, non distended. Normal bowel sounds Skin: Evidence of scabbing left side of forehead and face and sutures placed left side of forehead Back: No midline or flank tenderness Ext: No cyanosis, or edema Neur: Awake and alert Psych: Normal Mood and Affect Procedures/MDM This is a 66-year-old male who presents the emergency department today for suture removal. Per patient's medical records patient has syncopal episode on February 23, 2017 while waiting for the bus outside. 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 On physical exam patient had a significant amount of scabbing over the area where the sutures were placed. There is no indication as to how many sutures were placed on patient's previous medical records. I did remove 7 sutures and I do not see any evidence of other sutures placed. The wound is approximated well. There is no purulent drainage, erythema or warmth. Patient tolerated the procedure well and there were no complications. I did give the patient another work note as patient had been seen by Dr. Bird when he was admitted here in the hospital and was instructed to follow-up with a neurosurgeon in regards to his neck injury. Patient did have all paperwork with him. Patient is still waiting for this referral however he states he does have an appointment in 2 weeks. Patient was given a work note for another week. Wound was redressed here with triple antibiotic ointment. Patient was instructed to stay out of the sun to help improve scarring. He was given a prescription for triple antibiotic ointment. At this time the patient is stable for discharge and outpatient management. Patient should follow up with their PCP in the next 1-2 days. They may return to the emergency department sooner for any persistent or worsening of symptoms. Patient understood and agreed with the plan. Departure Diagnosis: Primary Impression: Encounter for removal of sutures Condition: Fair Patient Instructions: Suture Removal, No Complication Referrals: your PCP your neurosurgeon Additional Instructions: Call your primary care doctor TOMORROW for an appointment during the next 1-2 days.See the doctor sooner or return here if your condition worsens before your appointment time. Use triple antibiotic ointment on wound and keep wound out of the sun Keep your appointment with your primary care doctor for referral to neurosurgery ALDAIR KWONG PA-C Mar 03, 2017 08:08
== END 2017-03-03 08:11 | disposition home or self-care (01) ==
LOC: FTE 07:08
DX: Z48.02 Encounter for removal of sutures (principal); F17.210 Nicotine dependence, cigarettes, uncomplicated
CPT/HCPCS: 99283

== ENCOUNTER 2017-12-25 12:28 | Emergency (ER) | END 2017-12-25 13:47 | disposition home or self-care (01) ==

== ENCOUNTER 2019-02-12 13:11 | Emergency (ER) | payer BC ==
[~2019-02-12] VITALS: Ht 185.4 cm; Wt 76.7 kg
[~2019-02-12 13:11] MED LIST changes: +ACET-141 PO; -HYDR-3498 PO; +HYDR-3601 PO; +IBUP-1542 PO; +NEOM1PAC TP
[2019-02-12 13:23] VITALS: BP 149/93; PULSE 76; RESP 20; Ht 185.4 cm; Wt 76.7 kg
--- NOTE | 2019-02-12 14:57 | ERD ---
ER Documentation Chief Complaint Chief Complaint intermittent sharp left foot pain x 1 week HPI 68-year-old male with no significant past medical history presents for left foot pain x1 week. The pain is located at the first metatarsal area. Patient has history of fracture on the left foot, no surgery done at that time. He states he may have healed wrong. He has had prior however he states that the pain is worse in the last few days. Denies fevers or chills. Denies chest pain or shortness of breath. Denies abdominal pain, nausea, vomiting. No other modifying factors noted. No other treatment tried at home. ROS All systems reviewed and are negative except as per history of present illness. Medications Home Meds Active Scripts Acetaminophen* (Acetaminophen*) 500 MG Extra Strength Tablet, 500 MG PO Q4H PRN for PAIN AND OR ELEVATED TEMP, #30 TAB Prov:DEB REINA DO 02/12/19 Ibuprofen* (Motrin*) 600 Mg Tab, 600 MG PO Q6H PRN for PAIN AND OR ELEVATED TEMP, #30 TAB Prov:MERCEDES RUIZ MECHANICAL ARTIST 12/25/17 Neomycin [place]illa/Bacitrac Zn/Poly (Triple Antibiotic Ointment) 1 Each Oint.pack, 1 EACH TP BID for 7 Days Prov:ALDAIR KWONG PA-C 03/03/17 Docusate Sodium (Dok) 100 Mg Capsule, 100 MG PO Q12H PRN for CONSTIPATION for 7 Days, #14 CAP Prov:LINN BIRD MD 02/24/17 Hydrocodone Bit-Acetaminophen (Hydrocodone Bit-APAP) 5-325MG Tablet, 1 TAB PO Q6H PRN for PAIN LEVEL 4-6 for 7 Days, #10 TAB Prov:LINN BIRD MD 02/24/17 [Nicotine (14 Mg/24 Hr)] 1 PATCH PATCH No Conflict Check, 1 PATCH TRANSDERM DAILY for 30 Days, #30 Prov:LINN BIRD MD 02/24/17 Allergies Allergies: Coded Allergies: No Known Allergy (Unverified , 12/25/17) PMhx/Soc History of Surgery: Yes (testicular surgery) Anesthesia Reaction: No Hx Neurological Disorder: No Hx Respiratory Disorders: Yes (asthma - COPD) Hx Cardiac Disorders: No Hx Psychiatric Problems: No Hx Miscellaneous Medical Probl: Yes Hx Alcohol Use: No Hx Substance Use: No Hx Tobacco Use: Yes (smokes a half pack per day) FmHx Family History: No coronary disease Physical Exam Vitals Vital Signs Date Temp Pulse Resp B/P (MAP) Pulse Ox O2 O2 Flow FiO2 Time Delivery Rate 02/12/19 97.9 76 20 149/93 96 13:23 (111) Physical Exam Const: No acute distress Resp: Clear to auscultation bilaterally Cardio: Regular rate and rhythm, no murmurs Skin: No petechiae or rashes Back: No midline or flank tenderness Neur: Awake and alert Psych: Normal Mood and Affect Lower Extremity- left: Skin: No laceration Compartments: Soft Motor: Full active range of motion hip/knee/ankle/decreased range of motion of the left foot Sensation: Intact to light touch FDWS/MF/LF/P surfaces. Bones: Nontender pelvis/knee/proximal tibia/ malleoli/mild tenderness palpation of the left metatarsal area Joints: No effusion or laxity Pulses/Perfusion: 2+ DP, Capillary refill < 2 seconds Procedures/MDM Medical Decision Making: Differential diagnosis includes but not limited to fracture, dislocation, muscle strain, ligamentous sprain, septic joint, osteomyelitis, gout, Patient appeared well on physical exam. There was tenderness over the left foot diffusely Patient was neurovascularly intact Patient denies fever, no recent infection, low suspicion for septic joint or osteomyelitis. ED course: Imaging: X-ray left foot 3V Interpreted by me: Bones: No fracture Joints: No dislocation Foreign body: None. Per radiology there were some moderate degenerative changes of the first metatarsal phalangeal joint as well as moderate degenerative changes over the medial sesamoid. Prescription(s): Patient given prescription for supportive medication(s). Patient was also placed in Jus bandage in the left foot while in the ER. Patient advised to follow up with PCP in 1-2 days. Patient advised to return to ED for new or worsening symptoms. Patient stable on discharge from the ED. Disclaimer: Inadvertent spelling and grammatical errors are likely due to EHR/dictation software use and do not reflect on the overall quality of patient care. Also, please note that the electronic time recorded on this note does not necessarily reflect the actual time of the patient encounter. Departure Diagnosis: Primary Impression: Foot pain Laterality: left Qualified Codes: M79.672 - Pain in left foot Condition: Fair Patient Instructions: Foot and Ankle Exercises: Ankle Circles Referrals: [facility] YOU HAVE RECEIVED A MEDICAL SCREENING EXAM AND THE RESULTS INDICATE THAT YOU DO NOT HAVE A CONDITION THAT REQUIRES URGENT TREATMENT IN THE EMERGENCY DEPARTMENT. FURTHER EVALUATION AND TREATMENT OF YOUR CONDITION CAN WAIT UNTIL YOU ARE SEEN IN YOUR DOCTORS OFFICE WITHIN THE NEXT 1-2 DAYS. IT IS YOUR RESPONSIBILITY TO MAKE AN APPOINTMENT FOR FOLOW-UP CARE. IF YOU HAVE A PRIMARY DOCTOR --you should call your primary doctor and schedule an appointment IF YOU DO NOT HAVE A PRIMARY DOCTOR YOU CAN CALL OUR PHYSICIAN REFERRAL HOTLINE AT IF YOU CAN NOT AFFORD TO SEE A PHYSICIAN YOU CAN CHOSE FROM THE FOLLOWING [facility] [address] [facility] [facility] [address] [facility] [facility] [address] [facility]. [facility] [address] [facility]. [facility] [address] [facility]. [facility]. [address] Additional Instructions: Call your primary care doctor TOMORROW for an appointment during the next 1-2 da ys.See the doctor sooner or return here if your condition worsens before your appointment time. DEB REINA DO Feb 12, 2019 14:57
== END 2019-02-12 14:58 | disposition home or self-care (01) ==
LOC: E/R 13:11
DX: M79.672 Pain in left foot (principal); J44.9 Chronic obstructive pulmonary disease, unspecified; F17.210 Nicotine dependence, cigarettes, uncomplicated